=== PATIENT | female | born 1970 | race Caucasian/White ===

== ENCOUNTER → 2016-09-01 | Outpatient (CLI) | payer OTHER ==
[~2016-09-01] MED LIST: ADVA250A INH; ALBUAER3 INH; AMLO5TAB2 PO; ASCO500T35 PO; ASPI81TA81 PO; CETI-6 PO; DEXA1.5T PO; FLUT1SPR22 NASAL; FLUT50SP EACH NARE; HYDR-3583 PO; LEVO-168 PO; LISI-515 PO; MAGN200T PO; METF1000 PO; NEUR300C PO; PERI8.6T PO; PROT40TA PO; VITA-83 PO; WOMETAB2 PO; [UNRECOGNIZED DRUG - OTHER] PO
[2016-09-01 08:20] LABS: HEMATOCRIT 41.1 % (35.0-46.0); MEAN CELL VOLUME 95.4 FL (80.0-100.0); MEAN CORPUSCULAR HEMOGLOBIN 32.9 PG (27.0-34.0); MEAN CORPUSCULAR HGB CONC 34.5 % (32.0-36.0); PLATELET COUNT 308 TH/MM3 (150-450); REVIEW FLAG FINAL; WHITE BLOOD COUNT 10.3 TH/MM3 (4.0-11.0)
[2016-09-01 08:31] LABS: PROTHROMBIN TIME - PATIENT 10.8 SEC (9.8-11.6)
[2016-09-01 08:51] LABS: BICARBONATE 30.9 MEQ/L (21.0-32.0); POTASSIUM 4.6 MEQ/L (3.5-5.1)
--- NOTE | 2016-09-01 08:59 | RADRPT ---
EXAM DATE/TIME: 09/01/2016 08:47 [facility] COMPARISON: No previous studies available for comparison. INDICATIONS : Evaluate for pneumonia, pneumothorax, or communicable disease; Pre op for surgery Tuesday. MEDICAL HISTORY : Hypertension. Diabetes mellitus type II. Asthma, Renal disease. SURGICAL HISTORY : None. ENCOUNTER: Initial ACUITY: 1 day PAIN SCORE: 0/10 LOCATION: Bilateral chest FINDINGS: PA and lateral views of the chest demonstrate the lungs to be symmetrically aerated without evidence of mass, infiltrate or effusion. The cardiomediastinal contours are unremarkable. Osseous structure s are intact. CONCLUSION: No acute disease. Albert Reina MD on September 01, 2016 at 8:57 Board Certified Radiologist. This report was verified electronically.
--- NOTE | 2016-09-02 15:13 | EKG ---
Date Performed: 09/01/2016 Time Performed: 08:19:17 PTAGE: 46 years EKG: Sinus rhythm NORMAL ECG NO PREVIOUS TRACING DOCTOR: Kenn Turpin Interpretating Date/Time 09/02/2016 15:10:53
== END ==
LOC: CPRE 07:54
PROVIDERS: ATTEND Neurological Surgery
DX: Z01.810 Encounter for preprocedural cardiovascular examination (principal); Z01.811 Encounter for preprocedural respiratory examination; Z01.812 Encounter for preprocedural laboratory examination; Z01.818 Encounter for other preprocedural examination; Z79.01 Long term (current) use of anticoagulants; E78.4 Other hyperlipidemia; E11.9 Type 2 diabetes mellitus without complications; M50.00 Cervical disc disorder with myelopathy, unspecified cervical region
CPT/HCPCS: 36415; 71020; 80048; 85027; 85610; 93005

== ENCOUNTER 2016-09-07 06:27 | Inpatient (IN) | payer OTHER ==
[~2016-09-07] VITALS: Ht 165.1 cm; Wt 111.0 kg
[~2016-09-07 06:27] MED LIST changes: -ASCO500T35 PO; -DEXA1.5T PO; -FLUT50SP EACH NARE; -HYDR-3583 PO; -NEUR300C PO; -PERI8.6T PO; -PROT40TA PO; -[UNRECOGNIZED DRUG - OTHER] PO
[2016-09-07 07:05] VITALS: BP 109/65; PULSE 70; RESP 16; TEMP 98.2; O2SAT 100
[2016-09-07] MEDS ORDERED: ceFAZolin 2 GM PREMIX 50 ML ONE (07:06)
[2016-09-07] MEDS ORDERED: LACTATED RINGER'S 1000 ML INJ 1,000 ML ONE (07:06)
[2016-09-07] MEDS ORDERED: CHLORHEXIDINE GLUCONATE 2 % 1 PACK (2 CLOTHS) TOPICAL PRN (07:30)
[2016-09-07] MEDS ORDERED: LACTATED RINGER'S 1000 ML INJ 1,000 ML IV SCH (07:30)
[2016-09-07] MEDS: ceFAZolin 2 GM PREMIX 50 ML IV SCH ×2 (07:30→16:30)
[2016-09-07] MEDS ORDERED: INSULIN HUMAN REGULAR 1,000 UNITS/10 ML VIAL SQ PRN (07:30)
[2016-09-07] MEDS ORDERED: SODIUM CHLORID 0.9% 500 ML IV PRN (07:30)
[2016-09-07] MEDS ORDERED: POVIDONE IODINE 5% (ANTISEPSIS KIT) 4 APPLICATIONS EACH NARE PRN (07:30)
[2016-09-07] MEDS ORDERED: METOPROLOL TARTRATE 25 MG TAB PO PRN (07:30)
[2016-09-07] MEDS ORDERED: LACTATED RINGER'S 1000 ML IV PRN (07:30)
[2016-09-07] MEDS ORDERED: THROMBIN (TOPICAL) 5,000 UNIT VIAL ONE ×2 (07:44→21:59)
[2016-09-07] MEDS ORDERED: GENTAMICIN SULFATE 80 MG/2 ML VIAL ONE (07:45)
[2016-09-07] MEDS ORDERED: GELFOAM SIZE 100 ONE (07:45)
[2016-09-07] MEDS ORDERED: LIDOCAINE 1%/EPINEPHrine 1:100,000 SOLN 20 ML VIAL ONE (07:45)
[2016-09-07] MEDS ORDERED: ACETAMINOPHEN 1000 MG/100 ML VIAL IV ONE ×2 (07:57→15:38)
[2016-09-07] MEDS ORDERED: fentaNYL CITRATE 250 MCG/5 ML AMP ONE ×3 (07:58→23:02)
[2016-09-07] MEDS ORDERED: HYDROmorphone HCL PF 2 MG/ML VIAL ONE ×2 (07:58→15:41)
[2016-09-07] MEDS ORDERED: APREPITANT 40 MG CAP ONE (07:58)
[2016-09-07] MEDS ORDERED: MIDAZOLAM HCL 2 MG/2 ML VIAL ONE ×3 (07:58→23:02)
[2016-09-07] MEDS ORDERED: FAMOTIDINE 20 MG/2 ML VIAL ONE (07:58)
[2016-09-07] MEDS ORDERED: DEXAMETHASONE SOD PHOS 4 MG/ML VIAL ONE ×2 (07:58→15:38)
[2016-09-07] MEDS ORDERED: ceFAZolin INJ 1,000 MG VIAL IV ONE (20:30)
[2016-09-07] MEDS ORDERED: ePHEDrine/NS 25 MG/5 ML SYR IV ONE (23:00)
[2016-09-07] MEDS ORDERED: NORMOSOL R INJ 2,000 ML IV ONE (23:00)
[2016-09-07] MEDS ORDERED: PROPOFOL 200 MG/20 ML AMP IV ONE (23:00)
[2016-09-07] MEDS ORDERED: LACTATED RINGER'S 1000 ML INJ 2,000 ML IV ONE (23:00)
[2016-09-07] MEDS ORDERED: ONDANSETRON HCL 4 MG/2 ML VIAL IV PUSH ONE (23:00)
[2016-09-08] VITALS (13 sets, daily range): BP systolic 143–160; BP diastolic 70–88; PULSE 61–88; RESP 10–19; TEMP 98–98.7; O2SAT 95–100
[2016-09-08] MEDS ORDERED: *morphine SULFATE 8 MG/ML PERIprocedure ONLY ONE ×2 (00:14→00:19)
[2016-09-08] MEDS ORDERED: NALOXONE HCL 0.4 MG/ML AMP IV PRN (00:15)
[2016-09-08] MEDS ORDERED: SODIUM CHLORIDE 0.9% FLUSH 5 ML FLUSH IVF PRN (00:15)
[2016-09-08] MEDS ORDERED: MORPHINE SULFATE 4 MG/ML INJ IV PRN (00:15)
[2016-09-08] MEDS ORDERED: DO NOT ADM ANY ANTICOAGULANT DRUGS PRN (00:15)
--- NOTE | 2016-09-08 00:15 | RADRPT ---
EXAM DATE/TIME: 09/07/2016 17:55 [facility] COMPARISON: No previous studies available for comparison. INDICATIONS : C6-C7 cervical fusion. MEDICAL HISTORY : Hypertension. Diabetes mellitus type II. Asthma, Renal disease SURGICAL HISTORY : None. ENCOUNTER: Initial ACUITY: 1 day PAIN SCORE: Non-responsive. LOCATION: Bilateral neck FINDINGS: 2 lateral views of the lower cervical spine were obtained using a matrix camera and demonstrate an an terior screw-plate fixation device at the C6-7 level. There is bone grafting material and markers in interspace which are poorly visualized. An endotracheal tube and temperature probe are noted. CONCLUSION: Limited lateral exam. Ezra Mancia MD on September 08, 2016 at 0:12 Board Certified Radiologist. This report was verified electronically.
--- NOTE | 2016-09-08 01:04 | PD.OP ---
Operative Report Date of Surgery: September 07, 2016 Preoperative Diagnosis: (1) Cervical disc disease with myelopathy 1. Severe cervical degenerative disc disease, multilevel cervical disc herniations with moderate to severe history or osteophytic disc complex 2. Severe C6 7 and moderately severe C5 6 and C7-T1 canal stenosis 3. 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 Severe cervical degenerative disc disease, multilevel cervical disc herniations with moderate to severe history or osteophytic disc complex 2. Severe C6 7 and moderately severe C5 6 and C7-T1 canal stenosis 3. Cervical myelopathy 4. Ossification posterior longitudinal ligament 5. Intraoperative CSF leak secondary to ossification posterior longitudinal ligament Procedure: 1. C6 7 anterior cervical discectomy, resection of extensive chronic herniated nucleus pulposus and posterior osteophytic disc. 2. Resection C6-7 ossified posterior longitudinal ligament 3. Repair C6-7 dural defect 4. Partial and C7 corpectomy with reconstruction utilizing PEEK cage, demineralized bone matrix 5. C6-7 anterior cervical instrumentation 6. Use of intraoperative microscope high-power magnification for resection chronic posterior ossific disc complex and ossified posterior longitudinal ligament. Anesthesia: Gen. endotracheal Surgeon: Don Gamble Manufacturers Service Representative(s): Amrit Knight Operation and Findings: Indications: 46-year-old female with progressive upper extremity paresthesia. Preoperative CT scan and MRI cervical spine with extremely severe partially calcified chronic appearing herniated nucleus pulposus and posterior osteophytic disc complex with a component of calcified posterior longitudinal ligament was severe spinal cord compression. Findings: Severe chronic appearing C6-7 herniated nucleus pulposis with osteophyte formation. Localized OPLL at the central to left C6-7 level with erosion of the dura Procedure in detail: The patient was brought into the operating room and positioned in supine position on the 3080 table with the head and neck in neutral position. Colon catheter was placed. Lines were established by Anesthesia. Gen. endotracheal anesthesia was induced without difficulty, taking care not to significantly flex or extend the patient's neck during intubation and positioning. Leads for intraoperative neuro monitoring were placed and a baseline study obtained. All extremities were appropriately padded. The neck and upper chest were shaved with clippers and sterilely prepped and draped. Appropriate timeout procedure was performed with all personnel present and in agreement 1% Xylocaine with epinephrine was used for local infiltration over the incision site which was made transversely at the C6-7 level and carried sharply down through the platysma muscle. The exposure was continued medial to the sternocleidomastoid muscle and carotid artery, and lateral to the trachea and esophagus. The prevertebral fascia was elevated away from the anterior longitudinal ligament with a Kitner sponge. The longus coli muscle on each side was elevated with the Herrera elevator. The self-retaining retractor was placed with the blades beneath the longus coli muscle on each side. The appropriate levels were confirmed with intraoperative C-arm and preoperative imaging studies. The microscope was brought into place and used for the remainder of the procedure including the closure. The procedure was performed at the C6-7 level. This level was addressed first due to the severity of the stenosis. The anterior osteophyte was resected with the Leksell rongeur. The disc and annulus was incised with a 15 blade knife and discectomy performed with pituitary biopsy forceps and straight and angled curettes. There was very little desiccated disc material at the C6-7 level A large amount of chronic appearing herniated disc material was lifted away from extensive osteophyte deeper in the canal using the straight and angled and ligament dissectors and pituitary biopsy forceps. The TPS drill with the 5 mm barrel bur was used to decorticate the endplates and removed the majority of the osteophyte along the anterior spinal canal as well as the right and left uncovertebral joint. Due to the extensive nature of the large posterior osteophytic disc complexes at the C6-7 level and degree of ligament calcification, the inferior half of the C6 and superior half of the C7 vertebral bodies were removed with the TPS drill in order to adequately access the spinal canal for decompression. Once the initial layer of herniated disc material was removed, a deeper layer of dense calcification was encountered which was again removed with the TPS drill with the 5 mm barrel bur and the 4 mm miguel bur. The miguel dash was used to extensively undercut the posterior aspect of the residual C6 and C7 vertebral bodies in order to make room for the underlying calcified ligament and chronic disc herniated material to be lifted away from the spinal canal with the thickened ligament dissector and removed with the Kerrison rongeur without impinging on the anterior thecal sac. Very cautious dissection was performed under high part magnification, and a extensive area of calcified posterior longitudinal ligament was removed. The remainder of the resection of the posterior annulus and ligament as well as the posterior osteophyte and bilateral uncovertebral joint was performed with the 2 and 3 mm thin footplate Kerrison rongeurs. This large section of calcified chronic disc herniated material and calcified posterior longitudinal ligament was adherent to the thecal sac, but there was a good plane of dissection. However, once this was removed, there was a less severe but still prominent calcification of the dura and deeper aspect of the posterior longitudinal ligament which appeared to cause significant residual compression on the spinal cord. The Rhoton dissectors and the microknife were used to carefully free up the area of calcification from the surrounding dura and ligament. The dura in this region was totally calcified and absent, and careful dissection was undertaken in order to maintain a layer of arachnoid surrounding the spinal cord and nerves. Despite this, a small relatively focal defect in the arachnoid was encountered. There was focal CSF leakage from this region. There was no protrusion of any nerve roots or other neural material through the defect. A thin layer of deep or calcified ligament extending below the residual C6 and C7 vertebral body was again lifted away from the anterior thecal sac with the thickened ligament dissector and resected with the thin footplate Kerrison rongeurs and the micro-biopsy forceps. Bleeding was carefully controlled with temporary application of Gelfoam thrombin and the bipolar forceps. The dural defect was covered with a piece of properly prepared bovine pericardium to create a barrier between the arachnoid and dural defect and the bone graft. The appropriate size PEEK spacer filled with demineralized bone matrix was then placed at the C6-7 level with a good fit of the graft. The blunt nerve hook was used to probe beneath the bone graft to ensure that there was no impingement on the thecal sac or exiting nerve roots. Additional Gelfoam and thrombin was placed alongside the spacer to further prevent CSF leakage. The appropriate size Precision anterior cervical plate was then chosen and the bone screws were placed with the 14 mm fixed screws at the caudal most level and the 14 mm variable screws at the cephalad level of the decompression. The screws were firmly secured and the locking cams engaged. The screws were placed under direct intraoperative C-arm imaging. Imaging was difficult due to the size of the patient's shoulders. Multiple images were taken during placement of the screws, and the C6 screws appear to be in good position. However a final postoperative x-ray with further retraction of the patient's arms and shoulders revealed the C6 screws to be somewhat low and the vertebral body, but not impinging on the graft. Excellent purchase of the screws was obtained during the procedure. Due to the CSF leak as well as the degree of calcification of the dura encountered, as well as some intermittent changes in intraoperative neural monitoring during the procedure, it was elected to limit the anterior procedure to the C6-7 level with plans for a postoperative MRI and possible further posterior rather than anterior decompression as a staged procedure. There was no significant bleeding at the time of the closure. The closure was performed with 3-0 Vicryl running for the platysma and interrupted for the subcutaneous closure, with 4-0 Vicryl running for the subcuticular closure. A dressing of sterile Mastisol, Steri-Strips, and Primapore dressing was placed. The patient was placed into a cervical collar, and taken to recovery room in stable condition. All counts were correct at the end of the case. Estimated blood loss was 450 cc No specimen was sent to pathology. Intraoperative neuro monitoring revealed some intermittent changes in the sensory and motor evoked potentials, which had mostly corrected by the end of the procedure. Don Gamble MD September 08, 2016 01:04
[2016-09-08] MEDS: D5-1/2 NS + KCL 20 MEQ INJ 1,000 ML IV SCH ×3 (01:35→20:29)
[2016-09-08] MEDS: HYDROmorphone HCL PF 1 MG/ML VIAL IV PRN ×3 (02:59→20:39)
[2016-09-08 04:22] LABS: BASOPHIL % 0.1 % (0.0-2.0); HEMATOCRIT 38.2 % (35.0-46.0); HEMO FLAGS DIFF FINAL; LYMPHOCYTE # 0.7 TH/MM3 (1.0-4.8); MEAN CELL VOLUME 95.3 FL (80.0-100.0); MEAN CORPUSCULAR HEMOGLOBIN 31.5 PG (27.0-34.0); MEAN CORPUSCULAR HGB CONC 33.1 % (32.0-36.0); MONO % 2.3 % (0.0-8.0); NEUT % 91.6 % (16.0-70.0); PLATELET COUNT 228 TH/MM3 (150-450); WHITE BLOOD COUNT 11.9 TH/MM3 (4.0-11.0)
[2016-09-08 05:00] LABS: BICARBONATE 26.3 MEQ/L (21.0-32.0)
[2016-09-08 05:02] LABS: POTASSIUM 4.5 MEQ/L (3.5-5.1)
[2016-09-08] MEDS: SODIUM CHLORIDE 0.9% FLUSH 5 ML FLUSH IVF SCH ×2 (08:44→20:27)
[2016-09-08] MEDS: PANTOPRAZOLE SOD 40 MG DELAYED RELEASE TAB PO SCH (08:44)
[2016-09-08] MEDS: DOCUSATE SODIUM 100 MG CAP PO SCH ×2 (08:44→20:29)
[2016-09-08] MEDS: ACETAMINOPHEN/HYDROcodone 325 MG/5 MG TAB PO PRN (08:47)
--- NOTE | 2016-09-08 09:32 | HHI.NSPN ---
(Hilario Chase) Note Status Status: Progress Note (Hilario Chase) Interval History Interval History 09/07: Indications: 46-year-old female with progressive upper extremity paresthesia. Preoperative CT scan and MRI cervical spine with extremely severe partially calcified chronic appearing herniated nucleus pulposus and posterior osteophytic disc complex with a component of calcified posterior longitudinal ligament was severe spinal cord compression. Findings: Severe chronic appearing C6-7 herniated nucleus pulposis with osteophyte formation. Localized OPLL at the central to left C6-7 level with erosion of the dura 09/08: Patient was awake & alert when seen this morning. She does have a headache and dizziness. She complains of pain to the left elbow and left shoulder which is her major complaint. The left elbow is a sharp pain. PT did evaluate the patient this morning. Nursing reports that the patient had a blood glucose of 183 this morning and that the patient is diabetic. She normally takes metformin at home. (Hilario Chase) Labs, Micro, & Vital Signs Results Allergies Coded Allergies Type Severity Reaction Last Updated Verified Silvadene Allergy Severe Rash 09/07/16 Yes Recent Impressions Cervical Spine X-Ray 09/07/16 0000 Signed Impressions: Service Date/Time: Wednesday, September 07, 2016 17:55 - CONCLUSION: Limited lateral exam. Ezra Mancia MD /// 06:00 18:00 06:00 18:00 06:00 18:00 Intake Total 728 ml Output Total 700 ml Balance 28 ml Intake Oral 60 ml IV Total 668 ml Output Urine Total 700 ml Laboratory Tests Test 09/08/16 03:53 White Blood Count 11.9 TH/MM3 Red Blood Count 4.00 MIL/MM3 Hemoglobin 12.6 GM/DL Hematocrit 38.2 % Mean Corpuscular Volume 95.3 FL Mean Corpuscular Hemoglobin 31.5 PG Mean Corpuscular Hemoglobin 33.1 % Concent Red Cell Distribution Width 13.0 % Platelet Count 228 TH/MM3 Mean Platelet Volume 7.5 FL Neutrophils (%) (Auto) 91.6 % Lymphocytes (%) (Auto) 6.0 % Monocytes (%) (Auto) 2.3 % Eosinophils (%) (Auto) 0.0 % Basophils (%) (Auto) 0.1 % Neutrophils # (Auto) 11.0 TH/MM3 Lymphocytes # (Auto) 0.7 TH/MM3 Monocytes # (Auto) 0.3 TH/MM3 Eosinophils # (Auto) 0.0 TH/MM3 Basophils # (Auto) 0.0 TH/MM3 CBC Comment DIFF FINAL Differential Comment Sodium Level 139 MEQ/L Potassium Level 4.5 MEQ/L Chloride Level 106 MEQ/L Carbon Dioxide Level 26.3 MEQ/L Anion Gap 7 MEQ/L Blood Urea Nitrogen 9 MG/DL Creatinine 0.81 MG/DL Estimat Glomerular Filtration 76 ML/MIN Rate Random Glucose 183 MG/DL Calcium Level 8.1 MG/DL Constitutional Vital Signs Date Time Temp Pulse Resp B/P Pulse Ox O2 Delivery O2 Flow Rate FiO2 09/08/16 08:00 72 09/08/16 07:00 97 Nasal Cannula 2.00 09/08/16 06:00 70 09/08/16 04:00 98.7 80 19 156/72 97 09/08/16 04:00 80 09/08/16 02:00 79 09/08/16 01:45 98.7 88 19 150/88 95 09/08/16 01:34 95 Nasal Cannula 2.00 09/08/16 01:00 94 16 136/79 97 Nasal Cannula 2 09/08/16 00:45 98 16 156/82 98 Nasal Cannula 2 09/08/16 00:30 98 16 161/83 98 Nasal Cannula 2 09/08/16 00:15 100 16 156/83 97 Nasal Cannula 2 09/08/16 00:00 102 16 158/84 98 Nasal Cannula 2 09/07/16 23:45 100.7 112 16 163/86 98 Nasal Cannula 2 09/08/16 07:00 Intake Total 728 ml Output Total 700 ml Balance 28 ml (Hilario Chase) Review of Systems/Exam ROS Constitutional: Patient denies any fever or chills. HEENT: Patient does have soreness to the throat. She denies any hoarseness or difficulty swallowing. Neck: She denies any pain to the midline neck. Respiratory: She does have a cough. She denies any shortness of breath. Cardiovascular: She denies any chest pain, palpitations or irregular heart beat. Gastrointestinal: She denies any abdominal pain, nausea, vomiting or bowel incontinence. Extremities: Complains of pain to the left elbow and left shoulder. She feels weak to the extremities. Neurological: She has a headache and dizziness. She also has numbness to the left forearm and hand that is worse. She has numbness to the right forearm and the fourth and fifth fingers. The numbness to the legs and feet are the same. Exam General: Awake, alert, NAD. HEENT: Normocephalic, atraumatic. Neck: Torres Martinez J cervical collar in place. No midline tenderness to palpation. Left anterior neck with intact surgical dressing w/o any shadowing noted, mildly TTP. Respiratory: CTAB w/o W/R/R, equal excursion, non-laboured, on RA. Cardiovascular: S1S2 w/RRR w/o M/G/R, radial pulses 2+ bilaterally. Monitor is sinus rhythm w/o any ectopy noted. Gastrointestinal: Abdomen soft, nontender, positive bowel sounds. Genitourinary: Colon catheter to BSD w/clear yellow urine. Extremities: EVANS, no evident deformity, discolouration or clubbing noted. TTP over left scapula. TTP of left elbow. Neurological: AAOx3 Speech clear & appropriate although slow Follows simple commands Decrease sensation to all extremities, RUE, left arm and BLE w/o change from before surgery, left forearm & hand worse than before surgery. Motor strength: RUE & RLE 5/5, left bicep 5/5, left tricep & deltoid 4/5, left hand intrinsics & extensors 2/5, left hip flexion 4/5, left knee extension 4+/5 , left knee flexion 4/5, left plantar flexion & extension 4/5 (Hilario Chase) Medications Current Medications Current Medications Medications (Trade) Dose Ordered Sig/Lu Route Start Time Stop Time Status Last Admin Lactated Ringer's 1,000 ml @ 30 mls/hr Q24H PRN IV 09/07/16 07:30 09/10/16 07:29 (NS 500 ml Inj) 500 ml @ 30 mls/hr [id number] PRN IV 09/07/16 07:30 09/10/16 07:29 Miscellaneous Information ALL NURSING DEPARTME... UNSCH PRN .XX 09/08/16 00:15 09/09/16 00:14 (Diboll 5-325 Mg) 1 tab Q4H PRN PO 09/08/16 00:15 09/08/16 08:47 (Diboll 10-325 Mg) 1 tab Q4H PRN PO 09/08/16 00:15 (Dilaudid Pf Inj) 0.5 mg Q3H PRN IV 09/08/16 00:15 09/08/16 02:59 (Morphine Inj) 4 mg Q3H PRN IV 09/08/16 00:15 (Narcan Inj) 0.4 mg UNSCH PRN IV 09/08/16 00:15 (Colace) 100 mg BID PO 09/08/16 09:00 09/08/16 08:44 (Protonix) 40 mg DAILY PO 09/08/16 09:00 09/08/16 08:44 (Zofran Inj) 4 mg Q6H PRN IV 09/08/16 00:15 (NS Flush) 2 ml UNSCH PRN IVF 09/08/16 00:15 IV Flush 2 ml 2 ml BID IVF 09/08/16 09:00 09/08/16 08:44 (D5-1/2 NS + KCl 20 Meq Inj) 1,000 ml @ 100 mls/hr Q10H IV 09/08/16 00:13 (Hilario Chase) Medical Decision Making MDM Remarks (1) Cervical disc disease with myelopathy (2) 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 Severe cervical degenerative disc disease, multilevel cervical disc herniations with moderate to severe history or osteophytic disc complex 2. Severe C6 7 and moderately severe C5 6 and C7-T1 canal stenosis 3. Cervical myelopathy 4. Ossification posterior longitudinal ligament 5. Intraoperative CSF leak secondary to ossification posterior longitudinal ligament POD # 1 () s/p: 1. C6 7 anterior cervical discectomy, resection of extensive chronic herniated nucleus pulposus and posterior osteophytic disc. 2. Resection C6-7 ossified posterior longitudinal ligament 3. Repair C6-7 dural defect 4. Partial and C7 corpectomy with reconstruction utilizing PEEK cage, demineralized bone matrix 5. C6-7 anterior cervical instrumentation 6. Use of intraoperative microscope high-power magnification for resection chronic posterior ossific disc complex and ossified posterior longitudinal ligament. (Hilario Chase) Plan Plan Remarks Continue neuro checks PT eval & tx MRI cervical spine today Will order Novolog sliding scale insulin low intensity Will order blood glucose monitoring before meals Will order OT eval & tx Will consider transferring to a regular med/surg floor if MRI is okay (Hilario Chase) Attending Statement I have personally seen and examined the patient on the date of this note. Pertinent documentation and study results have been reviewed by the undersigned. I have personally developed the treatment plan and performed medical decision making. Agree with findings, exam, and treatment plan as noted above. Postoperative MRI reviewed with radiology. Significant edema at the C6-C7 level is somewhat anticipated based on the degree of severe spinal cord compression with rebound post-decompression edema. No evidence of hematoma within the cord. Examination reveals moderate sensory loss in this left C8 distribution with mostly 2/5 left hand intrinsics and abductor digiti quinti minimi, otherwise normal strength in the upper and lower extremities Patient complains of headache postoperatively. MRI reveals what appears to be a fluid collection tracking along the prevertebral space in the lower cervical upper thoracic region. Probable postoperative CSF leak. Treatment options discussed with patient. We will initially requested a lumbar subarachnoid drain to be placed and monitor for persistent CSF leak. May need revision of the operative site of CSF leak persist. I discussed plans for a stage posterior decompression with the patient. All questions answered PT, ST, OT notes reviewed (Don Gamble MD) Hilario Chase September 08, 2016 09:32 Don Gamble MD September 08, 2016 20:53
[2016-09-08] MEDS ORDERED: GLUCAGON 1 MG/ML VIAL OTHER PRN (10:15)
[2016-09-08] MEDS ORDERED: DEXTROSE 50% IN WATER 50 ML VIAL(D50) IV PRN (10:15)
[2016-09-08] MEDS: INSULIN ASPART SUPPLEMENTAL SCALE SQ SCH ×3 (11:22→20:30)
[2016-09-08] MEDS: ACETAMINOPHEN/HYDROcodone 325 MG/10 MG TAB PO PRN (15:38)
[2016-09-08] MEDS: ONDANSETRON HCL 4 MG/2 ML VIAL IV PRN (17:03)
--- NOTE | 2016-09-08 17:06 | RADRPT ---
EXAM DATE/TIME: 09/08/2016 11:31 [facility] COMPARISON: No previous studies available for comparison. Ellen Palomo, MRI C Spine, August 03, 2016 INDICATIONS : Left arm and hand weakness with left elbow pain post surgery. MEDICAL HISTORY : Hypertension. Diabetes mellitus type 2. Hypothyroidism. SURGICAL HISTORY : Cholecystectomy. Tubal ligation. C6-C7 discectomy 09/07 ENCOUNTER: Subsequent ACUITY: 1 day PAIN SCORE: 3/10 LOCATION: Left elbow TECHNIQUE: Multiplanar, multisequence MRI examination of the cervical spine was performed. FINDINGS: Sagittal images demonstrate normal vertebral body alignment and curvature. No focal areas of marrow r eplacement are identified. The craniocervical junction appears normal. The cord demonstrates abnormal signal intensity characteristic of edema at C6-C7 centrally. There is at least moderate stenosis at this level. There is fluid ventral to the thecal sac at C6-C7 measuring 8 mm in anterior posterior di mension which may reflect a CSF leak. Axial images were performed from C2-3 through C7-T1. C2-C3: No significant abnormalities identified. C3-C4: A central protrusion is present impinging on the thecal sac and touching the ventral aspect of the co rd and mildly deforming it. The neural foramina are clear bilaterally. C4-C5: A central to right sided disc protrusion is present impinging on the thecal sac. This flattens the co rd on its right lateral aspect. The neural foramina are clear bilaterally. C5-C6: A central to right sided disc protrusion is present impinging on the thecal sac and touching the vent ral aspect of the cord. There is moderate neural foraminal narrowing on the right. There is mild to m oderate spinal canal stenosis. This flattens the right lateral aspect of the cord. C6-C7: The graft is in good position. Cord edema is present with moderate to marked stenosis. The neural for divya are clear bilaterally. There is a ventral fluid collection which may reflect a CSF leak. C7-T1: There is broad-based annular bulge of disc. There is mild spinal canal stenosis. The neural foramina are clear bilaterally. CONCLUSION: 1. Postsurgical changes as above. 2. Moderate to marked stenosis at C6-C7 with prominent cord edema centrally 3. Disc protrusions at C3-C4 C4-C5 and C5-C6 central and asymmetric the right with mild to moderate s tenosis Martinez Shaw MD on September 08, 2016 at 16:48 Board Certified Radiologist. This report was verified electronically.
[2016-09-08] MEDS ORDERED: SODIUM CHLOR 0.45% 1000 ML INJ 1,000 ML IV SCH (20:53)
[2016-09-08] MEDS ORDERED: ALBUTEROL SULFATE 90 MCG/ACT HFA 8 GM INHALER INH PRN (21:00)
[2016-09-08] MEDS ORDERED: NON-FORMULARY DRUG (Fluticasone-Salmeterol Inh (Advair Diskus Inh) 1 PUFF) INH SCH (21:00)
[2016-09-08] MEDS ORDERED: ALBUTEROL SULFATE 90 MCG/ACT HFA 18 GM INHALER INH PRN (21:45)
[2016-09-09] VITALS (14 sets, daily range): BP systolic 118–146; BP diastolic 67–81; PULSE 72–83; RESP 12–16; TEMP 97.8–98.8; O2SAT 97–100
[2016-09-09] MEDS: HYDROmorphone HCL PF 1 MG/ML VIAL IV PRN ×5 (00:19→21:55)
[2016-09-09 05:14] LABS: APTT (PATIENT) 22.5 SEC (24.3-30.1); PROTHROMBIN TIME - PATIENT 10.7 SEC (9.8-11.6)
[2016-09-09] MEDS: LEVOTHYROXINE SODIUM 112 MCG TAB PO SCH (06:18)
[2016-09-09] MEDS: D5-1/2 NS + KCL 20 MEQ INJ 1,000 ML IV SCH ×2 (06:19→16:13)
[2016-09-09] MEDS: INSULIN ASPART SUPPLEMENTAL SCALE SQ SCH ×4 (06:34→20:38)
[2016-09-09] MEDS: ASCORBIC ACID 500 MG TAB PO SCH (08:25)
[2016-09-09] MEDS: amLODIPine BESYLATE 5 MG TAB PO SCH (08:25)
[2016-09-09] MEDS: CETIRIZINE HCL 10 MG TAB PO SCH (08:25)
[2016-09-09] MEDS: MULTIVITAMINS/MINERALS THERAPEUTIC TAB PO SCH (08:25)
[2016-09-09] MEDS: PANTOPRAZOLE SOD 40 MG DELAYED RELEASE TAB PO SCH (08:25)
[2016-09-09] MEDS: DOCUSATE SODIUM 100 MG CAP PO SCH ×2 (08:25→20:41)
[2016-09-09] MEDS: LISINOPRIL 20 MG TAB PO SCH (08:25)
[2016-09-09] MEDS: BUDESONIDE-FORMOTEROL 160/4.5 MCG INHALER INH SCH ×2 (08:25→20:41)
[2016-09-09] MEDS: SODIUM CHLORIDE 0.9% FLUSH 5 ML FLUSH IVF SCH ×2 (08:41→20:39)
[2016-09-09] MEDS: metFORMIN HCL 500 MG TAB PO SCH ×2 (08:41→16:21)
[2016-09-09] MEDS ORDERED: MAGNESIUM 200 MG PO SCH (09:00)
[2016-09-09] MEDS ORDERED: [UNRECOGNIZED DRUG - REMARK] PO SCH (09:00)
[2016-09-09] MEDS ORDERED: MULTIPLE VITAMINS PO SCH (09:00)
[2016-09-09] MEDS ORDERED: [UNRECOGNIZED DRUG - OTHER] PO SCH (09:00)
[2016-09-09] MEDS ORDERED: [UNRECOGNIZED DRUG - OTHER] PO SCH (09:00)
[2016-09-09] MEDS ORDERED: MINERALS PO SCH (09:00)
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
[2016-09-09] MEDS ORDERED: MIDAZOLAM HCL 5 MG/5 ML VIAL ONE (10:15)
[2016-09-09] MEDS ORDERED: fentaNYL CITRATE 250 MCG/5 ML AMP ONE (10:15)
[2016-09-09 10:18] LABS: ALT (GPT) 17 U/L (10-53); ANION GAP 9 MEQ/L (5-15); AST (GOT) 16 U/L (15-37); BICARBONATE 25.7 MEQ/L (21.0-32.0); BLOOD UREA NITROGEN 7 MG/DL (7-18); CHLORIDE 103 MEQ/L (98-107); GLOMERULAR FILTRATION RATE 90 ML/MIN (>89); POTASSIUM 3.9 MEQ/L (3.5-5.1); SODIUM (NA) 138 MEQ/L (136-145)
[2016-09-09 10:20] LABS: ALKALINE PHOSPHATASE 57 U/L (45-117); TOTAL BILIRUBIN ADULT 0.5 MG/DL (0.2-1.0)
--- NOTE | 2016-09-09 10:52 | PD.RAD ---
Post Procedure Progress Note Pre Procedure Diagnosis: (1) CSF leak Post Procedure Diagnosis: (1) CSF leak Procedure Date: September 09, 2016 Supervising Radiologist: Baron Hall JR Proceduralist/Assist: Maia Mcqueen, RT(R), Juan Holcomb RT(R) Anesthesia: Conscious Sedation Plan of Activity Patient to Unit: ROPU Patient Condition: Good See PACS Report for procedural detail/treatment Spinal Procedure Lumbar Drain L3-L4 Fluid Description: Clear Puncture Time: 10:32 Findings: clear csf. Jr. Rafael,Baron Marcus MD September 09, 2016 10:52
[2016-09-09] MEDS ORDERED: SODIUM PHOSPHATE INJ 21 MMOL in SODIUM CHLORIDE 0.9% INJ 150 ML IV ONE (11:45)
--- NOTE | 2016-09-09 11:50 | RADRPT ---
EXAM DATE/TIME: 09/09/2016 10:30 [facility] COMPARISON: No previous studies available for comparison. INDICATIONS : Patient presents with cerebral spinal fluid leak in need of lumbar drain to monitor site. MEDICAL HISTORY : CDD Diabetes Asthma Bronchitis Renal disease SURGIAL HISTORY : Lasix sx Gallbladder 1993 Tubal 09/08 C6-C7 ant. disc ENCOUNTER: Initial ACUITY: 2 days PAIN SCORE: 5/10 LOCATION: Left Arm and headache LUMBAR PUNCTURE TIME: 10:32 hours FLUORO TIME: 2.4 minutes IMAGE SERIES: 1 LEVEL: Tip of lumbar drain was placed at T7 DEVICE(S): 1.) 5 Lithuanian lumbar drain catheter PROCEDURE : 1. Fluoroscopically guided lumbar drain placement. 2. Conscious sedation with continuous EKG and oximetry monitoring. The risks, benefits and alternatives to the procedure were explained and verbal and written consent w as obtained. The site was prepped in sterile fashion. Full sterile technique was used, including ca p, mask, sterile gloves and gown and a large sterile sheet. Hand hygiene and 2% chlorhexidine and/or betadine/alcohol prep was utilized per protocol for cutaneous antisepsis. The skin and subcutaneous tissues were infiltrated with local anesthetic solution. With fluoroscopic guidance the lumbar thecal sac was punctured with a 14 gauge Touhy needle and a lum bar drain was placed with its tip at the level as described above and the catheter was sutured in megan ce. CSF was identified returning from the catheter at the termination of the procedure. Conscious sedation was performed with the prescribed dosages and duration as above in the presence of an independent trained radiology nurse to assist in the monitoring of the patient. EKG and oximetry remained stable throughout the procedure. The patient tolerated the procedure well and there were n o complications. The patient was sent to post anesthesia recovery in stable condition. CONCLUSION: Uncomplicated lumbar drain placement as above. Clear CSF noted. Baron Hall Jr., MD on September 09, 2016 at 11:48 Board Certified Radiologist. This report was verified electronically.
[2016-09-09] MEDS: ceFAZolin 2 GM PREMIX 50 ML IV SCH (12:08)
--- NOTE | 2016-09-09 12:37 | RADRPT ---
EXAM DATE/TIME: 09/09/2016 11:20 [facility] COMPARISON: MRI CERVICAL SPINE W/O CONTRAST, September 08, 2016, 11:31. INDICATIONS : Neck pain RADIATION DOSE: 29.32 CTDIvol (mGy) MEDICAL HISTORY : Non-responsive. SURGICAL HISTORY : cervical repair ENCOUNTER: Initial ACUITY: 1 day PAIN SCALE: Non-responsive LOCATION: neck TECHNIQUE: Volumetric scanning of the cervical spine was performed. Multiplanar reconstructions in the sagittal, coronal and oblique axial planes were performed. Using automated exposure control and adjustment o f the mA and/or kV according to patient size, radiation dose was kept as low as reasonably achievable to obtain optimal diagnostic quality images. FINDINGS: Sagittal images demonstrate normal vertebral body alignment and curvature. The odontoid is intact. Th e occipital condyles and lateral masses of C1 are intact. Axial images were performed from C2-C3 to C7-T1. There is anterior cervical fusion with a plate anteriorly from C6-C7. Nuclear C2-C3: No significant abnormalities identified. C3-C4: There is prominent central osteophyte impinging on the thecal sac causing mild stenosis. C4-C5: There is osteophytic ridging asymmetric to the right. This compromises the exiting right-sided nerve root exit zone. The neural foramina are clear bilaterally. C5-C6: A central to right sided disc protrusion is present impinging on the thecal sac. There is mild to mod erate spinal canal stenosis. The neural foramina are clear bilaterally. C6-C7: Postsurgical changes as above. There is moderate spinal canal stenosis. There is mild right sided ted ral foraminal narrowing. C7-T1: There is central osteophytic spur causing mild stenosis. CONCLUSION: 1. Postsurgical changes as above. moderate spinal stenosis at C6-C7. 2. Multilevel osteophytes compressing the thecal sac and causing mild to moderate stenosis Martinez Shaw MD on September 09, 2016 at 12:29 Board Certified Radiologist. This report was verified electronically.
[2016-09-09] MEDS: GABAPENTIN 300 MG CAP PO SCH (20:41)
[2016-09-09] MEDS ORDERED: MAGNESIUM OXIDE 400 MG TAB PO PRN (21:15)
[2016-09-09] MEDS ORDERED: SODIUM PHOSPHATE INJ 30 MMOL in SODIUM CHLOR 0.9% 250 ML INJ 240 ML IV PRN (21:15)
[2016-09-09] MEDS ORDERED: POTASSIUM CHLOR 20 MEQ PREMIX 100 ML IV PRN ×2 (21:15)
[2016-09-09] MEDS ORDERED: POTASSIUM CHLORIDE 25 MEQ EFFERVESCENT TAB PO PRN (21:15)
[2016-09-09] MEDS ORDERED: MAGNESIUM SULFATE INJ 4 GM in SODIUM CHLORIDE 0.9% INJ 92 ML IV PRN (21:15)
[2016-09-09] MEDS ORDERED: POTASSIUM CHLOR 40 MEQ PREMIX 100 ML IV PRN ×2 (21:15)
[2016-09-09] MEDS ORDERED: POTASSIUM PHOSPHATE MONOBASIC 500 MG TAB PO PRN (21:15)
[2016-09-09] MEDS ORDERED: MAGNESIUM SULFATE INJ 2 GM in SODIUM CHLORIDE 0.9% INJ 96 ML IV PRN (21:15)
[2016-09-10] VITALS (11 sets, daily range): BP systolic 114–145; BP diastolic 55–69; PULSE 72–85; RESP 11–17; TEMP 98.2–98.7; O2SAT 96–99
[2016-09-10 00:52] LABS: ALT (GPT) 16 U/L (10-53); ANION GAP 6 MEQ/L (5-15); AST (GOT) 13 U/L (15-37); BICARBONATE 28.5 MEQ/L (21.0-32.0); BLOOD UREA NITROGEN 7 MG/DL (7-18); CHLORIDE 106 MEQ/L (98-107); GLOMERULAR FILTRATION RATE 88 ML/MIN (>89); POTASSIUM 3.7 MEQ/L (3.5-5.1); SODIUM (NA) 140 MEQ/L (136-145)
[2016-09-10 00:55] LABS: ALKALINE PHOSPHATASE 57 U/L (45-117); TOTAL BILIRUBIN ADULT 0.4 MG/DL (0.2-1.0)
[2016-09-10] MEDS: HYDROmorphone HCL PF 1 MG/ML VIAL IV PRN ×2 (02:59→22:20)
[2016-09-10] MEDS: LEVOTHYROXINE SODIUM 112 MCG TAB PO SCH (06:00)
[2016-09-10] MEDS: INSULIN ASPART SUPPLEMENTAL SCALE SQ SCH ×4 (07:00→21:00)
[2016-09-10] MEDS ORDERED: GENTAMICIN SULFATE 80 MG/2 ML VIAL ONE (07:27)
[2016-09-10] MEDS ORDERED: LIDOCAINE 1%/EPINEPHrine 1:100,000 SOLN 20 ML VIAL ONE (07:27)
[2016-09-10] MEDS ORDERED: GELFOAM SIZE 100 ONE (07:27)
[2016-09-10] MEDS ORDERED: THROMBIN (TOPICAL) 5,000 UNIT VIAL ONE (07:27)
[2016-09-10] MEDS: BUDESONIDE-FORMOTEROL 160/4.5 MCG INHALER INH SCH ×2 (08:12→21:00)
[2016-09-10] MEDS: amLODIPine BESYLATE 5 MG TAB PO SCH (08:13)
[2016-09-10] MEDS: GABAPENTIN 300 MG CAP PO SCH ×2 (08:13→21:25)
[2016-09-10] MEDS: CETIRIZINE HCL 10 MG TAB PO SCH ×2 (08:13→18:57)
[2016-09-10] MEDS: SODIUM CHLORIDE 0.9% FLUSH 5 ML FLUSH IVF SCH (08:13)
[2016-09-10] MEDS: DOCUSATE SODIUM 100 MG CAP PO SCH ×2 (08:13→21:00)
[2016-09-10] MEDS: LISINOPRIL 20 MG TAB PO SCH (08:13)
[2016-09-10] MEDS: PANTOPRAZOLE SOD 40 MG DELAYED RELEASE TAB PO SCH (08:13)
[2016-09-10] MEDS: ASCORBIC ACID 500 MG TAB PO SCH (08:13)
[2016-09-10] MEDS: MULTIVITAMINS/MINERALS THERAPEUTIC TAB PO SCH (08:13)
[2016-09-10] MEDS: metFORMIN HCL 500 MG TAB PO SCH ×2 (08:13→18:00)
[2016-09-10] MEDS ORDERED: FAMOTIDINE 20 MG/2 ML VIAL ONE (08:19)
[2016-09-10] MEDS ORDERED: MIDAZOLAM HCL 2 MG/2 ML VIAL ONE (08:19)
[2016-09-10] MEDS ORDERED: ACETAMINOPHEN 1000 MG/100 ML VIAL IV ONE ×2 (08:25→13:09)
[2016-09-10] MEDS ORDERED: HYDROmorphone HCL PF 2 MG/ML VIAL ONE ×2 (08:26→13:08)
[2016-09-10] MEDS ORDERED: fentaNYL CITRATE 250 MCG/5 ML AMP ONE ×4 (08:26→14:52)
[2016-09-10] MEDS: ceFAZolin 2 GM PREMIX 50 ML IV SCH (09:10)
[2016-09-10] MEDS ORDERED: PROPOFOL 200 MG/20 ML AMP IV ONE (12:00)
[2016-09-10] MEDS ORDERED: NORMOSOL R INJ 2,000 ML IV ONE (12:00)
[2016-09-10] MEDS ORDERED: LACTATED RINGER'S 1000 ML INJ 1,000 ML IV ONE (12:00)
[2016-09-10] MEDS ORDERED: ONDANSETRON HCL 4 MG/2 ML VIAL IV PUSH ONE (12:00)
[2016-09-10] MEDS ORDERED: DO NOT ADM ANY ANTICOAGULANT DRUGS PRN (14:31)
[2016-09-10] MEDS ORDERED: *LABETALOL HCL 100 MG/20 ML VIAL PERIprocedural Use ONLY ONE (14:39)
[2016-09-10] MEDS ORDERED: SODIUM CHLORIDE 0.9% FLUSH 10 ML FLUSH IV FLUSH PRN (15:15)
--- NOTE | 2016-09-10 15:26 | RADRPT ---
EXAM DATE/TIME: 09/10/2016 09:10 [facility] COMPARISON: SPINE CERVICAL LATERAL ONLY, September 07, 2016, 17:55. INDICATIONS : C6-7 corpectomy with hardware placement. MEDICAL HISTORY : Hypertension. Diabetes mellitus type II. Asthma. SURGICAL HISTORY : Previous ACDF of C6-7. ENCOUNTER: Subsequent ACUITY: 3 days PAIN SCORE: Non-responsive. LOCATION: Cervical spine. FINDINGS: The vertebral bodies are normal in alignment on the lateral view. There is anterior cervical fusion w ith a plate anteriorly from C6-C7. CONCLUSION: 1. Postsurgical changes as above. Martinez Shaw MD on September 10, 2016 at 15:24 Board Certified Radiologist. This report was verified electronically.
[2016-09-10] MEDS: 1/2 NS + KCL 20 MEQ INJ 1,000 ML IV SCH (16:06)
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
[2016-09-10] MEDS: ACETAMINOPHEN/HYDROcodone 325 MG/10 MG TAB PO PRN (18:56)
[2016-09-10] MEDS: ONDANSETRON HCL 4 MG/2 ML VIAL IV PRN (19:02)
[2016-09-10] MEDS: SODIUM CHLORIDE 0.9% FLUSH 10 ML FLUSH IV FLUSH SCH (21:25)
[2016-09-11] VITALS (14 sets, daily range): BP systolic 124–145; BP diastolic 65–79; PULSE 64–84; RESP 11–23; TEMP 98–98.7; O2SAT 94–98
--- NOTE | 2016-09-11 00:39 | PD.OP ---
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 Severe cervical stenosis with myelopathy 2. 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 Severe cervical stenosis with myelopathy 2. Findings suggestive of Left C8 radiculopathy following initial C6-C7 level anterior decompression-partial corpectomy with reconstruction Procedure: 1. Revision C6 partial corpectomy, resection of additional ossified posterior longitudinal ligament and posterior osteophyte for further spinal cord and nerve decompression. 2. Removal and replacement C6-7 anterior cervical instrumentation 3. Revision of closure of C6-7 level dural defect Anesthesia: Gen. Surgeon: Don Gamble Sheet Metal Lay Out Worker(s): Ezra Solares Operation and Findings: Indications: 46-year-old female with extremely severe multilevel cervical stenosis, status post initial C6-7 partial corpectomy, resection large posterior ossific disc complex and ossified posterior longitudinal ligament with dural erosion and defect. Persistent CSF leakage noted on postoperative MRI as well as significant residual stenosis. Patient with left C8 distribution radicular symptoms and findings postoperatively, with postoperative CT scan revealing a small focal area of residual osteophyte at the left spinal canal potentially impinging on C8 nerve fibers. Procedure in detail: The patient was brought into the operating room and positioned in supine position on the 3080 table with the head and neck in neutral position. Colon catheter was placed. Lines were established by Anesthesia. Gen. endotracheal anesthesia was induced without difficulty, taking care not to significantly flex or extend the patient's neck during intubation and positioning. Leads for intraoperative neuro monitoring were placed and a baseline study obtained. All extremities were appropriately padded. The neck and upper chest were shaved with clippers and sterilely prepped and draped. Appropriate timeout procedure was performed with all personnel present and in agreement The previous sutures at the left anterior neck incision were removed. The trachea and esophagus were retracted medially, revealing the previously placed C6-7 level anterior cervical plate. The prevertebral fascia was elevated away from the anterior longitudinal ligament with a Kitner sponge. The longus coli muscle on each side was elevated with the Herrera elevator. The self-retaining retractor was placed with the blades beneath the longus coli muscle on each side. The microscope was brought into place and used for the remainder of the procedure including the closure. The previous anterior cervical plate was removed. The 14 mm distraction pins were used as needed for gentle distraction during the procedure. The previous graft at the C6-7 partial corpectomy site was removed. The previously placed bovine pericardial patch was inspected. There was a very small but persistent leakage of CSF from around the patch site. The patch was cut to a smaller size and left in place over the dural defect for initial protection during the further decompression portion of the procedure. The TPS drill with the 5 mm oval bur and the 4 mm miguel bur were used to cautiously remove residual shelf of bone on the left side at the C7 level overlying the anterior lateral canal. This area was just below the area of the dural defect encountered upon resection of the ossified posterior longitudinal ligament at the prior procedure, and was left in place at that procedure to avoid further extension of the dural defect and spinal fluid leakage. Initial inspection of this region did not appear to reveal significant residual spinal canal compression. However probing cautiously with the rotund dissectors revealed a small area of residual osteophyte protruding into the canal. Once the overlying bone was removed with a TPS drill, this residual area of osteophyte and bone was carefully freed up with the microsurgical dissectors and the thin remaining layer of bone was then lifted away from the spinal canal with the microdissectors. Further bone lateral towards the medial edge of the C7 pedicle was removed with the 2 mm thin footplate Kerrison rongeur. Once overlying bone was removed, it was noted that there was again not a full- thickness layer of dura, but mostly a layer of arachnoid overlying the exiting nerve root fibers. Hypertrophied ligament along the lateral canal was lifted away from the spinal canal to more completely decompress the spinal canal and exiting nerve root fibers at this level. Additional residual osteophyte was located on the right side just below the right C6 pedicle and adjacent to the exiting right C7 nerve root. This osteophyte was very adherent to the surrounding structures, and required quite a bit of careful dissection to free up the osteophyte and lifted away from the exiting nerve root. The TPS drill with a 4 mm miguel bur was then used to remove the posterior inferior aspect of the C6 vertebral body along with an additional portion of the inferior C6 vertebral body where the previous anterior cervical plate screws had been placed at C6. This additional corpectomy allowed further visualization of the anterior thecal sac beneath the C6 vertebral body. A residual area of calcified posterior longitudinal ligament was then freed up from the surrounding tissues with the micro-blade knife and carefully lifted away from the dura and removed. Additional smaller areas of osteophyte and hypertrophied ligament at the anterior canal were removed with the 1 and 2 mm Kerrison rongeur by carefully working up beneath the C6 vertebral body, taking great care not to provide any significant compression of the dura and anterior cord. The smaller pieces bovine pericardial graft that had been placed over the dural defect was quite tightly sealed without residual spinal fluid leakage encountered towards her the procedure. I additional piece of bovine pericardial graft was placed, followed by a thin layer of DuraSeal The appropriate size Depuy carbon fiber cervical cage was then filled with demineralized bone matrix and the patient's retained inferior C6 vertebral body cancellus bone, and placed with a good fit of the graft at the C6-C7 partial corpectomy site. The blunt nerve hook was used to probe beneath the bone graft to ensure that there was no impingement on the thecal sac or exiting nerve roots. The appropriate size Precision anterior cervical plate was then chosen and the bone screws were placed with the 14 mm fixed screws at the caudal most level and the 14 mm variable screws at the cephalad level of the decompression. The screws were firmly secured and the locking cams engaged. The entire construct was checked with intraoperative C-arm and felt to be satisfactory. The closure was performed with 3-0 Vicryl running for the platysma and interrupted for the subcutaneous closure, with 4-0 Vicryl running for the subcuticular closure. A dressing of sterile Mastisol, Steri-Strips, and Primapore dressing was placed. The patient was placed into a cervical collar, and taken to recovery room in stable condition. All counts were correct at the end of the case. Estimated blood loss was 200 cc No specimen was sent to pathology. Intraoperative neuro monitoring remained stable during the procedure. Anticipate further surgical intervention for posterior spinal canal decompression. Don Gamble MD September 11, 2016 00:39
[2016-09-11] MEDS: 1/2 NS + KCL 20 MEQ INJ 1,000 ML IV SCH ×3 (01:04→11:00)
[2016-09-11] MEDS: LEVOTHYROXINE SODIUM 112 MCG TAB PO SCH (05:00)
[2016-09-11] MEDS: HYDROmorphone HCL PF 1 MG/ML VIAL IV PRN ×4 (05:00→19:43)
[2016-09-11 05:04] LABS: MAGNESIUM 2.1 MG/DL (1.5-2.5); POTASSIUM 3.9 MEQ/L (3.5-5.1)
[2016-09-11] MEDS: INSULIN ASPART SUPPLEMENTAL SCALE SQ SCH ×4 (07:00→20:17)
[2016-09-11] MEDS: SODIUM CHLORIDE 0.9% FLUSH 10 ML FLUSH IV FLUSH SCH ×2 (09:00→19:43)
[2016-09-11] MEDS: metFORMIN HCL 500 MG TAB PO SCH ×2 (09:00→16:25)
[2016-09-11] MEDS: PANTOPRAZOLE SOD 40 MG DELAYED RELEASE TAB PO SCH (09:01)
[2016-09-11] MEDS: MULTIVITAMINS/MINERALS THERAPEUTIC TAB PO SCH (09:01)
[2016-09-11] MEDS: GABAPENTIN 300 MG CAP PO SCH ×2 (09:01→17:20)
[2016-09-11] MEDS: BUDESONIDE-FORMOTEROL 160/4.5 MCG INHALER INH SCH ×2 (09:01→19:45)
[2016-09-11] MEDS: ASCORBIC ACID 500 MG TAB PO SCH (09:01)
[2016-09-11] MEDS: DOCUSATE SODIUM 100 MG CAP PO SCH ×2 (09:01→19:43)
[2016-09-11] MEDS: amLODIPine BESYLATE 5 MG TAB PO SCH (09:02)
[2016-09-11] MEDS: LISINOPRIL 20 MG TAB PO SCH (09:02)
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
[2016-09-11] MEDS ORDERED: SODIUM PHOSPHATE INJ 21 MMOL in SODIUM CHLORIDE 0.9% INJ 150 ML IV ONE (13:00)
[2016-09-11] MEDS: DEXAMETHASONE SOD PHOS 4 MG/ML VIAL IV PUSH SCH ×2 (17:20→23:30)
[2016-09-12] VITALS (13 sets, daily range): BP systolic 114–128; BP diastolic 61–81; PULSE 62–82; RESP 11–18; TEMP 97.8–98.5; O2SAT 94–98
[2016-09-12 04:56] LABS: BICARBONATE 25.5 MEQ/L (21.0-32.0); MAGNESIUM 2.1 MG/DL (1.5-2.5); POTASSIUM 4.1 MEQ/L (3.5-5.1)
[2016-09-12] MEDS: INSULIN ASPART SUPPLEMENTAL SCALE SQ SCH ×4 (05:04→22:01)
[2016-09-12] MEDS: DEXAMETHASONE SOD PHOS 4 MG/ML VIAL IV PUSH SCH ×4 (05:06→23:02)
[2016-09-12] MEDS: 1/2 NS + KCL 20 MEQ INJ 1,000 ML IV SCH ×2 (05:06→23:11)
[2016-09-12] MEDS: LEVOTHYROXINE SODIUM 112 MCG TAB PO SCH (05:06)
[2016-09-12] MEDS: HYDROmorphone HCL PF 1 MG/ML VIAL IV PRN ×3 (06:05→19:31)
[2016-09-12] MEDS: MULTIVITAMINS/MINERALS THERAPEUTIC TAB PO SCH (08:33)
[2016-09-12] MEDS: CETIRIZINE HCL 10 MG TAB PO SCH (08:33)
[2016-09-12] MEDS: GABAPENTIN 300 MG CAP PO SCH ×3 (08:33→17:33)
[2016-09-12] MEDS: LISINOPRIL 20 MG TAB PO SCH (08:34)
[2016-09-12] MEDS: amLODIPine BESYLATE 5 MG TAB PO SCH (08:34)
[2016-09-12] MEDS: DOCUSATE SODIUM 100 MG CAP PO SCH ×2 (08:34→22:01)
[2016-09-12] MEDS: ASCORBIC ACID 500 MG TAB PO SCH (08:34)
[2016-09-12] MEDS: PANTOPRAZOLE SOD 40 MG DELAYED RELEASE TAB PO SCH (08:34)
[2016-09-12] MEDS: BUDESONIDE-FORMOTEROL 160/4.5 MCG INHALER INH SCH ×2 (09:00→21:58)
[2016-09-12] MEDS: metFORMIN HCL 500 MG TAB PO SCH ×2 (09:00→18:00)
[2016-09-12] MEDS: SODIUM CHLORIDE 0.9% FLUSH 10 ML FLUSH IV FLUSH SCH ×2 (09:00→21:58)
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
[2016-09-12] MEDS: ACETAMINOPHEN/HYDROcodone 325 MG/10 MG TAB PO PRN (23:02)
[2016-09-12] MEDS: ONDANSETRON HCL 4 MG/2 ML VIAL IV PRN (23:02)
[2016-09-13] VITALS (12 sets, daily range): BP systolic 95–136; BP diastolic 58–84; PULSE 54–91; RESP 11–20; TEMP 97.5–99.1; O2SAT 96–97
[2016-09-13] MEDS: HYDROmorphone HCL PF 1 MG/ML VIAL IV PRN ×2 (04:38→20:07)
[2016-09-13] MEDS: LEVOTHYROXINE SODIUM 112 MCG TAB PO SCH (06:30)
[2016-09-13] MEDS: INSULIN ASPART SUPPLEMENTAL SCALE SQ SCH ×4 (06:30→20:50)
[2016-09-13] MEDS: DEXAMETHASONE SOD PHOS 4 MG/ML VIAL IV PUSH SCH ×3 (06:30→18:25)
[2016-09-13] MEDS: DOCUSATE SODIUM 100 MG CAP PO SCH ×2 (08:18→20:07)
[2016-09-13] MEDS: PANTOPRAZOLE SOD 40 MG DELAYED RELEASE TAB PO SCH (08:18)
[2016-09-13] MEDS: GABAPENTIN 300 MG CAP PO SCH ×3 (08:18→18:25)
[2016-09-13] MEDS: LISINOPRIL 20 MG TAB PO SCH (08:18)
[2016-09-13] MEDS: MULTIVITAMINS/MINERALS THERAPEUTIC TAB PO SCH (08:18)
[2016-09-13] MEDS: amLODIPine BESYLATE 5 MG TAB PO SCH (08:18)
[2016-09-13] MEDS: CETIRIZINE HCL 10 MG TAB PO SCH (08:19)
[2016-09-13] MEDS: ASCORBIC ACID 500 MG TAB PO SCH (08:19)
[2016-09-13] MEDS: metFORMIN HCL 500 MG TAB PO SCH ×2 (08:19→18:25)
[2016-09-13] MEDS: SODIUM CHLORIDE 0.9% FLUSH 10 ML FLUSH IV FLUSH SCH ×2 (08:19→20:07)
[2016-09-13] MEDS: BUDESONIDE-FORMOTEROL 160/4.5 MCG INHALER INH SCH ×2 (08:20→20:07)
--- NOTE | 2016-09-13 11:13 | HHI.NSPN ---
(RenaHilario) Note Status Status: Progress Note (Hilario ChaseYang LARSON) Interval History Interval History 09/07: Indications: 46-year-old female with progressive upper extremity paresthesia. Preoperative CT scan and MRI cervical spine with extremely severe partially calcified chronic appearing herniated nucleus pulposus and posterior osteophytic disc complex with a component of calcified posterior longitudinal ligament was severe spinal cord compression. Findings: Severe chronic appearing C6-7 herniated nucleus pulposis with osteophyte formation. Localized OPLL at the central to left C6-7 level with erosion of the dura 09/08: Patient was awake & alert when seen this morning. She does have a headache and dizziness. She complains of pain to the left elbow and left shoulder which is her major complaint. The left elbow is a sharp pain. PT did evaluate the patient this morning. Nursing reports that the patient had a blood glucose of 183 this morning and that the patient is diabetic. She normally takes metformin at home. 09/09: This morning the patient states she is doing "okay." She states she had a headache all day yesterday that resolved when she laid down. The numbness and pain is now to the whole LUE. Yesterday when her boyfriend was touching her left forearm it was painful. Nursing reports that during the night the patient was having PVCs and did diuresis a large amount of urine. 09/10: The patient was symptomatic and imaging demonstrated a residual portion of the lateral posterior osteophyte possibly impinging on the exiting left C VIII nerve fibers. Therefore she was taken back to the OR today for a surgical revision of the partial C6-C7 corpectomy. When seen post-operatively the patient stated that she was doing good. There was no numbness or pain to the extremities. 09/11: The patient went for a revision of the C6 partial corpectomy, anterior cervical instrumentation & C6-7 level dural defect closure yesterday morning. When seen that afternoon the patient was doing better. After she was seen the patient stated that the numbness returned to both forearms and hands and that the pain also returned on the left. This morning she states that she is doing good and there has been no change. 09/12: The patient states she is doing good this morning. The numbness to the LUE is improved and the pain less since starting the Decadron and adjusting the gabapentin. 09/13: The patient is doing good this morning. She states that the numbness is the same as yesterday. She reports that she slept with the cervical collar off last night and a towel roll beside her head so as to remind her to not move her neck. She has the collar back on since she was watching TV. She also reported that Speech Therapy saw her and that she was able to swallow crackers without any difficulty. (Hilario Chase) Labs, Micro, & Vital Signs Constitutional Vital Signs Date Time Temp Pulse Resp B/P Pulse Ox O2 Delivery O2 Flow Rate FiO2 09/13/16 08:00 56 09/13/16 08:00 98.4 56 18 136/84 97 09/13/16 07:00 97 Room Air 09/13/16 06:00 54 09/13/16 04:00 97.5 61 11 95/59 96 09/13/16 04:00 61 09/13/16 02:00 66 09/13/16 00:00 65 09/13/16 00:00 97.8 65 12 101/58 97 09/12/16 22:00 75 09/12/16 20:00 68 09/12/16 20:00 98.5 68 13 119/61 96 09/12/16 19:00 96 Room Air 09/12/16 18:00 75 09/12/16 16:00 98.2 81 18 114/68 96 09/12/16 16:00 81 09/12/16 14:00 80 09/12/16 12:00 98.5 82 13 120/71 94 09/12/16 12:00 82 09/13/16 07:00 Intake Total 1545 ml Output Total 2457 ml Balance -912 ml (Hilario Chase) Review of Systems/Exam ROS Constitutional: Patient denies any fever or chills. HEENT: Patient denies any sore throat, hoarseness or difficulty swallowing. Neck: Patient denies any pain at present. Respiratory: Patient denies any shortness of breath or productive cough. Cardiovascular: Patient denies any chest pain, palpitations or irregular heart beat. Gastrointestinal: Patient denies any abdominal pain, nausea, vomiting or bowel incontinence. Extremities: Patient states that the pain and weakness to the left forearm and hand are the same. Neurological: Patient still has numbness to the extremities that is the same as yesterday. She denies any headache or dizziness. Exam General: Awake, alert, NAD. HEENT: Normocephalic, atraumatic. Neck: Unga J cervical collar in place. Midline cervical spine NTTP. Left anterior neck with intact surgical dressing dry & intect, no evident drainage, erythema or streaking. Respiratory: CTAB w/o W/R/R, equal excursion, non-laboured, on RA. Cardiovascular: S1S2 w/RRR w/o M/G/R, radial pulses 2+ bilaterally. Monitor is sinus rhythm w/o any ectopy noted. Gastrointestinal: Abdomen soft, nontender, positive bowel sounds. Genitourinary: Colon catheter to BSD w/clear yellow urine. Extremities: EVANS, no evident deformity, discolouration or clubbing noted. The left forearm felt was mildly TTP which minimally increased from the medial wrist to the 3rd, 4th & 5th digits. Neurological: AAOx3 Speech clear & appropriate Follows simple commands Continues with decreased sensation to left forearm & hand, slightly more from the medial wrist down to the 4th & 5th fingers, without any change. Slight numbness to the medial right forearm down to the4th & 5th digit. Still with the same numbness to the lower extremities. 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 (Hilario Chase) Medications Current Medications Current Medications Medications (Trade) Dose Ordered Sig/Lu Route Start Time Stop Time Status Last Admin ([place] 5-325 Mg) 1 tab Q4H PRN PO 09/08/16 00:15 09/08/16 08:47 ([place] 10-325 Mg) 1 tab Q4H PRN PO 09/08/16 00:15 09/12/16 23:02 (Dilaudid Pf Inj) 0.5 mg Q3H PRN IV 09/08/16 00:15 09/13/16 04:38 (Morphine Inj) 4 mg Q3H PRN IV 09/08/16 00:15 (Narcan Inj) 0.4 mg UNSCH PRN IV 09/08/16 00:15 (Colace) 100 mg BID PO 09/08/16 09:00 09/13/16 08:18 (Protonix) 40 mg DAILY PO 09/08/16 09:00 09/13/16 08:18 (Zofran Inj) 4 mg Q6H PRN IV 09/08/16 00:15 09/12/16 23:02 (D50w (Vial) Inj) 50 ml UNSCH PRN IV 09/08/16 10:15 (Glucagon Inj) 1 mg UNSCH PRN OTHER 09/08/16 10:15 (Norvasc) 5 mg DAILY PO 09/09/16 09:00 09/13/16 08:18 (Synthroid) 112 mcg DAILY@06 PO 09/09/16 06:00 09/13/16 06:30 (Prinivil) 20 mg DAILY PO 09/09/16 09:00 09/13/16 08:18 (Glucophage) 1,000 mg BIDPC PO 09/09/16 09:00 09/13/16 08:19 (Ventolin Hfa Inh) 1 puff Q4H PRN INH 09/08/16 21:45 (Vitamin C) 500 mg DAILY PO 09/09/16 09:00 09/13/16 08:19 (ZyrTEC) 10 mg DAILY PO 09/09/16 09:00 09/13/16 08:19 (Symbicort 160-4.5 Inh) 2 puff BID INH 09/09/16 09:00 09/13/16 08:20 (Theragran M Tab) 1 tab DAILY PO 09/09/16 09:00 09/13/16 08:18 Patient Own Medication PT OWN MED: MAGNES... DAILY PO 09/09/16 09:00 Hold Potassium Chloride 100 ml @ 50 mls/hr Q2H PRN IV 09/09/16 21:15 (KCl 20 Meq Premix Inj) 100 ml @ 50 mls/hr Q2H PRN IV 09/09/16 21:15 Potassium Bicarb/ Potassium Chloride 50 meq 50 meq UNSCH PRN PO 09/09/16 21:15 Potassium Chloride 100 ml @ 25 mls/hr UNSCH PRN IV 09/09/16 21:15 Potassium Chloride 100 ml @ 50 mls/hr Q2H PRN IV 09/09/16 21:15 (Magnesium Sulfate Inj/NS Inj) 100 ml @ 50 mls/hr UNSCH PRN IV 09/09/16 21:15 Magnesium Oxide 800 mg 800 mg UNSCH PRN PO 09/09/16 21:15 (Magnesium Sulfate Inj/NS Inj) 100 ml @ 50 mls/hr UNSCH PRN IV 09/09/16 21:15 Potassium Phosphate 2000 mg 2,000 mg Q4H PRN PO 09/09/16 21:15 (Sodium Phosphate Inj/NS 250 ml Inj) 250 ml @ 42 mls/hr UNSCH PRN IV 09/09/16 21:15 09/11/16 05:43 (NS Flush) 2 ml UNSCH PRN IV FLUSH 09/10/16 15:15 Sodium Chloride 2 ml 2 ml BID IV FLUSH 09/10/16 21:00 09/13/16 08:19 (1/2 NS + KCl 20 Meq Inj) 1,000 ml @ 30 mls/hr Q24H IV 09/10/16 15:00 09/12/16 23:11 (Decadron Inj) 4 mg Q6HR IV PUSH 09/11/16 18:00 09/13/16 06:30 (Neurontin) 300 mg TID PO 09/11/16 18:00 09/13/16 08:18 (Hilario Chase) Medical Decision Making MDM Remarks (1) Cervical disc disease with myelopathy (2) 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 Severe cervical degenerative disc disease, multilevel cervical disc herniations with moderate to severe history or osteophytic disc complex 2. Severe C6 7 and moderately severe C5 6 and C7-T1 canal stenosis 3. Cervical myelopathy 4. Ossification posterior longitudinal ligament 5. Intraoperative CSF leak secondary to ossification posterior longitudinal ligament POD # 5 () s/p: 1. C6 7 anterior cervical discectomy, resection of extensive chronic herniated nucleus pulposus and posterior osteophytic disc. 2. Resection C6-7 ossified posterior longitudinal ligament 3. Repair C6-7 dural defect 4. Partial and C7 corpectomy with reconstruction utilizing PEEK cage, demineralized bone matrix 5. C6-7 anterior cervical instrumentation 6. Use of intraoperative microscope high-power magnification for resection chronic posterior ossific disc complex and ossified posterior longitudinal ligament. MRI cervical spine demonstrated stenosis at the C6-7 level with prominent cord edema centrally and a ventral fluid collection which may reflect a CSF leak Lumbar subarachnoid drain placement by Interventional Radiology POD # 2 () s/p: 1. Revision C6 partial corpectomy, resection of additional ossified posterior longitudinal ligament and posterior osteophyte for further spinal cord and nerve decompression. 2. Removal and replacement C6-7 anterior cervical instrumentation 3. Revision of closure of C6-7 level dural defect Intermittent PVCs resolved Hypophosphatemia, resolved Stable neurological exam (Hilario Chase) Plan Plan Remarks Continue neuro checks ST for swallowing Novolog sliding scale insulin low intensity Diet as tolerated Continue Decadron q6h Continue gabapentin TID Will clamp lumbar subarachnoid drain, if no swelling to site tomorrow plan to d/ c Mobilise patient Will reorder PT & OT eval & tx (Hilario Chase) Attending Statement I have personally seen and examined the patient on 09/13/16. Pertinent documentation and study results have been reviewed by the undersigned. I have personally developed the treatment plan and performed medical decision making. Agree with findings, exam, and treatment plan as noted above. Left upper extremity dysesthetic pain gradually improving postoperatively. Left upper extremity strength slowly improving Continuing therapy Continuing steroids Close subarachnoid drain and observe (Don Gamble MD) Hilario Chase September 13, 2016 11:13 Don Gamble MD September 15, 2016 23:46
[2016-09-13] MEDS: ACETAMINOPHEN/HYDROcodone 325 MG/5 MG TAB PO PRN (12:00)
[2016-09-13] MEDS: ACETAMINOPHEN/HYDROcodone 325 MG/10 MG TAB PO PRN (15:47)
[2016-09-13] MEDS: ONDANSETRON HCL 4 MG/2 ML VIAL IV PRN (15:47)
[2016-09-14] VITALS (13 sets, daily range): BP systolic 104–130; BP diastolic 61–74; PULSE 61–75; RESP 11–20; TEMP 97.5–98.7; O2SAT 96–99
[2016-09-14] MEDS: ONDANSETRON HCL 4 MG/2 ML VIAL IV PRN ×3 (00:26→20:32)
[2016-09-14] MEDS: ACETAMINOPHEN/HYDROcodone 325 MG/10 MG TAB PO PRN ×3 (00:26→20:32)
[2016-09-14] MEDS: DEXAMETHASONE SOD PHOS 4 MG/ML VIAL IV PUSH SCH ×2 (00:26→05:11)
[2016-09-14] MEDS: HYDROmorphone HCL PF 1 MG/ML VIAL IV PRN (05:11)
[2016-09-14] MEDS: LEVOTHYROXINE SODIUM 112 MCG TAB PO SCH (05:11)
[2016-09-14] MEDS: 1/2 NS + KCL 20 MEQ INJ 1,000 ML IV SCH (06:50)
[2016-09-14] MEDS: INSULIN ASPART SUPPLEMENTAL SCALE SQ SCH ×4 (07:00→20:33)
[2016-09-14] MEDS: GABAPENTIN 300 MG CAP PO SCH ×4 (08:48→18:02)
[2016-09-14] MEDS: PANTOPRAZOLE SOD 40 MG DELAYED RELEASE TAB PO SCH (08:48)
[2016-09-14] MEDS: MULTIVITAMINS/MINERALS THERAPEUTIC TAB PO SCH (08:48)
[2016-09-14] MEDS: DOCUSATE SODIUM 100 MG CAP PO SCH ×2 (08:49→20:31)
[2016-09-14] MEDS: LISINOPRIL 20 MG TAB PO SCH (08:49)
[2016-09-14] MEDS: amLODIPine BESYLATE 5 MG TAB PO SCH (08:49)
[2016-09-14] MEDS: ASCORBIC ACID 500 MG TAB PO SCH (08:49)
[2016-09-14] MEDS: CETIRIZINE HCL 10 MG TAB PO SCH (08:49)
[2016-09-14] MEDS: metFORMIN HCL 500 MG TAB PO SCH ×2 (08:49→18:02)
[2016-09-14] MEDS: SODIUM CHLORIDE 0.9% FLUSH 10 ML FLUSH IV FLUSH SCH ×2 (08:50→20:31)
[2016-09-14] MEDS: BUDESONIDE-FORMOTEROL 160/4.5 MCG INHALER INH SCH ×2 (08:50→20:31)
--- NOTE | 2016-09-14 10:01 | HHI.NSPN ---
(RenaHilario) Note Status Status: Progress Note (Hilario ChaseYang LARSON) Interval History Interval History 09/07: Indications: 46-year-old female with progressive upper extremity paresthesia. Preoperative CT scan and MRI cervical spine with extremely severe partially calcified chronic appearing herniated nucleus pulposus and posterior osteophytic disc complex with a component of calcified posterior longitudinal ligament was severe spinal cord compression. Findings: Severe chronic appearing C6-7 herniated nucleus pulposis with osteophyte formation. Localized OPLL at the central to left C6-7 level with erosion of the dura 09/08: Patient was awake & alert when seen this morning. She does have a headache and dizziness. She complains of pain to the left elbow and left shoulder which is her major complaint. The left elbow is a sharp pain. PT did evaluate the patient this morning. Nursing reports that the patient had a blood glucose of 183 this morning and that the patient is diabetic. She normally takes metformin at home. 09/09: This morning the patient states she is doing "okay." She states she had a headache all day yesterday that resolved when she laid down. The numbness and pain is now to the whole LUE. Yesterday when her boyfriend was touching her left forearm it was painful. Nursing reports that during the night the patient was having PVCs and did diuresis a large amount of urine. 09/10: The patient was symptomatic and imaging demonstrated a residual portion of the lateral posterior osteophyte possibly impinging on the exiting left C VIII nerve fibers. Therefore she was taken back to the OR today for a surgical revision of the partial C6-C7 corpectomy. When seen post-operatively the patient stated that she was doing good. There was no numbness or pain to the extremities. 09/11: The patient went for a revision of the C6 partial corpectomy, anterior cervical instrumentation & C6-7 level dural defect closure yesterday morning. When seen that afternoon the patient was doing better. After she was seen the patient stated that the numbness returned to both forearms and hands and that the pain also returned on the left. This morning she states that she is doing good and there has been no change. 09/12: The patient states she is doing good this morning. The numbness to the LUE is improved and the pain less since starting the Decadron and adjusting the gabapentin. 09/13: The patient is doing good this morning. She states that the numbness is the same as yesterday. She reports that she slept with the cervical collar off last night and a towel roll beside her head so as to remind her to not move her neck. She has the collar back on since she was watching TV. She also reported that Speech Therapy saw her and that she was able to swallow crackers without any difficulty. 09/14: The patient is doing well this morning, sitting up in a chair and having breakfast. The numbness remains the same. She denies any headache. The lumbar subarachnoid drain was clamped yesterday. (Hilario Chase) Labs, Micro, & Vital Signs Constitutional Vital Signs Date Time Temp Pulse Resp B/P Pulse Ox O2 Delivery O2 Flow Rate FiO2 09/14/16 06:00 62 09/14/16 04:00 98.3 61 20 104/68 97 09/14/16 04:00 61 09/14/16 02:00 63 09/14/16 00:00 64 09/14/16 00:00 98.7 64 11 118/68 96 09/13/16 22:00 75 09/13/16 20:00 98.7 75 12 117/64 97 09/13/16 20:00 75 09/13/16 19:00 96 Room Air 09/13/16 18:00 91 09/13/16 16:00 98.9 72 13 108/58 97 09/13/16 16:00 72 09/13/16 14:00 84 09/13/16 12:00 99.1 77 20 114/62 96 09/13/16 12:00 77 09/13/16 10:00 66 09/14/16 06:59 Intake Total 1075 ml Output Total 2509 ml Balance -1434 ml (Hilario Chase) Review of Systems/Exam ROS Constitutional: Patient denies any fever or chills. HEENT: Patient denies any sore throat, hoarseness or difficulty swallowing. Neck: Patient denies any pain at present. Respiratory: Patient denies any shortness of breath or productive cough. Cardiovascular: Patient denies any chest pain, palpitations or irregular heart beat. Gastrointestinal: Patient denies any abdominal pain, nausea, vomiting or bowel incontinence. Extremities: Patient states that the pain and weakness to the left forearm and hand are the same. Neurological: Patient still has numbness to the extremities that remains without any change. She denies any headache or dizziness. Exam General: Awake, alert, NAD. HEENT: Normocephalic, atraumatic. Neck: Burna J cervical collar in place. Midline cervical spine NTTP. Left anterior neck with intact surgical dressing dry & intect, no evident drainage, erythema or streaking. Respiratory: CTAB w/o W/R/R, equal excursion, non-laboured, on RA. Cardiovascular: S1S2 w/RRR w/o M/G/R, radial pulses 2+ bilaterally. Monitor is sinus rhythm w/o any ectopy noted. Gastrointestinal: Abdomen soft, nontender, positive bowel sounds. Genitourinary: Colon catheter to BSD w/clear yellow urine. Extremities: EVANS, no evident deformity, discolouration or clubbing noted. The left forearm felt was mildly TTP which minimally increased from the medial wrist to the 3rd, 4th & 5th digits. Back: The lumbar drain insertion site is without any evident drainage, erythema , streaking or swelling, the catheter appears intact. The system is clamped. Neurological: AAOx3 Speech clear & appropriate Follows simple commands Continues with decreased sensation to left forearm & hand, slightly more from the medial wrist down to the 4th & 5th fingers, without any change. Slight numbness to the medial right forearm down to the4th & 5th digit. Still with the same numbness to the lower extremities. 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 (Hilario Chase) Medications Current Medications Current Medications Medications (Trade) Dose Ordered Sig/Lu Route Start Time Stop Time Status Last Admin ([place] 5-325 Mg) 1 tab Q4H PRN PO 09/08/16 00:15 09/13/16 12:00 ([place] 10-325 Mg) 1 tab Q4H PRN PO 09/08/16 00:15 09/14/16 00:26 (Dilaudid Pf Inj) 0.5 mg Q3H PRN IV 09/08/16 00:15 09/14/16 05:11 (Morphine Inj) 4 mg Q3H PRN IV 09/08/16 00:15 (Narcan Inj) 0.4 mg UNSCH PRN IV 09/08/16 00:15 (Colace) 100 mg BID PO 09/08/16 09:00 09/14/16 08:49 (Protonix) 40 mg DAILY PO 09/08/16 09:00 09/14/16 08:48 (Zofran Inj) 4 mg Q6H PRN IV 09/08/16 00:15 09/14/16 00:26 (D50w (Vial) Inj) 50 ml UNSCH PRN IV 09/08/16 10:15 (Glucagon Inj) 1 mg UNSCH PRN OTHER 09/08/16 10:15 (Norvasc) 5 mg DAILY PO 09/09/16 09:00 09/14/16 08:49 (Synthroid) 112 mcg DAILY@06 PO 09/09/16 06:00 09/14/16 05:11 (Prinivil) 20 mg DAILY PO 09/09/16 09:00 09/14/16 08:49 (Glucophage) 1,000 mg BIDPC PO 09/09/16 09:00 09/14/16 08:49 (Ventolin Hfa Inh) 1 puff Q4H PRN INH 09/08/16 21:45 (Vitamin C) 500 mg DAILY PO 09/09/16 09:00 09/14/16 08:49 (ZyrTEC) 10 mg DAILY PO 09/09/16 09:00 09/14/16 08:49 (Symbicort 160-4.5 Inh) 2 puff BID INH 09/09/16 09:00 09/14/16 08:50 (Theragran M Tab) 1 tab DAILY PO 09/09/16 09:00 09/14/16 08:48 Patient Own Medication PT OWN MED: MAGNES... DAILY PO 09/09/16 09:00 Hold Potassium Chloride 100 ml @ 50 mls/hr Q2H PRN IV 09/09/16 21:15 (KCl 20 Meq Premix Inj) 100 ml @ 50 mls/hr Q2H PRN IV 09/09/16 21:15 Potassium Bicarb/ Potassium Chloride 50 meq 50 meq UNSCH PRN PO 09/09/16 21:15 Potassium Chloride 100 ml @ 25 mls/hr UNSCH PRN IV 09/09/16 21:15 Potassium Chloride 100 ml @ 50 mls/hr Q2H PRN IV 09/09/16 21:15 (Magnesium Sulfate Inj/NS Inj) 100 ml @ 50 mls/hr UNSCH PRN IV 09/09/16 21:15 Magnesium Oxide 800 mg 800 mg UNSCH PRN PO 09/09/16 21:15 (Magnesium Sulfate Inj/NS Inj) 100 ml @ 50 mls/hr UNSCH PRN IV 09/09/16 21:15 Potassium Phosphate 2000 mg 2,000 mg Q4H PRN PO 09/09/16 21:15 (Sodium Phosphate Inj/NS 250 ml Inj) 250 ml @ 42 mls/hr UNSCH PRN IV 09/09/16 21:15 09/11/16 05:43 (NS Flush) 2 ml UNSCH PRN IV FLUSH 09/10/16 15:15 Sodium Chloride 2 ml 2 ml BID IV FLUSH 09/10/16 21:00 09/14/16 08:50 (1/2 NS + KCl 20 Meq Inj) 1,000 ml @ 30 mls/hr Q24H IV 09/10/16 15:00 09/12/16 23:11 (Decadron Inj) 4 mg Q6HR IV PUSH 09/11/16 18:00 09/14/16 05:11 (Neurontin) 300 mg TID PO 09/11/16 18:00 09/14/16 08:48 (Hilario Chase) Medical Decision Making MDM Remarks (1) Cervical disc disease with myelopathy (2) 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 Severe cervical degenerative disc disease, multilevel cervical disc herniations with moderate to severe history or osteophytic disc complex 2. Severe C6 7 and moderately severe C5 6 and C7-T1 canal stenosis 3. Cervical myelopathy 4. Ossification posterior longitudinal ligament 5. Intraoperative CSF leak secondary to ossification posterior longitudinal ligament POD # 7 () s/p: 1. C6 7 anterior cervical discectomy, resection of extensive chronic herniated nucleus pulposus and posterior osteophytic disc. 2. Resection C6-7 ossified posterior longitudinal ligament 3. Repair C6-7 dural defect 4. Partial and C7 corpectomy with reconstruction utilizing PEEK cage, demineralized bone matrix 5. C6-7 anterior cervical instrumentation 6. Use of intraoperative microscope high-power magnification for resection chronic posterior ossific disc complex and ossified posterior longitudinal ligament. MRI cervical spine demonstrated stenosis at the C6-7 level with prominent cord edema centrally and a ventral fluid collection which may reflect a CSF leak Lumbar subarachnoid drain placement by Interventional Radiology POD # 4 () s/p: 1. Revision C6 partial corpectomy, resection of additional ossified posterior longitudinal ligament and posterior osteophyte for further spinal cord and nerve decompression. 2. Removal and replacement C6-7 anterior cervical instrumentation 3. Revision of closure of C6-7 level dural defect Intermittent PVCs resolved Hypophosphatemia, resolved Stable neurological exam Lumbar subarachnoid insertion site looks good, no swelling (Hilario Chase ) Plan Plan Remarks Continue neuro checks ST for swallowing Novolog sliding scale insulin low intensity Diet as tolerated Will change Decadron to PO and start tapering dose Will change gabapentin 300 mg TID to 300-600-300 Will d/c lumbar subarachnoid drain, flat in bed for 6 hrs then able to mobilise Will d/c IVF Will d/c Colon catheter once patient is able to mobilise Plan to transfer to floor later today MRI cervical spine in AM Possible d/c home tomorrow (Hilario Chase) Attending Statement I have personally seen and examined the patient on 09/14/16. Pertinent documentation and study results have been reviewed by the undersigned. I have personally developed the treatment plan and performed medical decision making. Agree with findings, exam, and treatment plan as noted above. No signs or symptoms to suggest persistent CSF leak. Remove lumbar subarachnoid drain and mobilize out of bed later on today. Continue therapy Plan follow-up MRI scan postop. (Don Gamble MD) Hilario Chase September 14, 2016 10:01 Don Gamble MD September 15, 2016 23:47
[2016-09-14] MEDS: DEXAMETHASONE 4 MG TAB PO SCH ×3 (12:51→23:17)
[2016-09-15] MEDS: HYDROmorphone HCL PF 1 MG/ML VIAL IV PRN ×2 (04:16→09:52)
[2016-09-15] MEDS: DEXAMETHASONE 4 MG TAB PO SCH ×3 (04:16→18:58)
[2016-09-15] MEDS: LEVOTHYROXINE SODIUM 112 MCG TAB PO SCH (04:17)
[2016-09-15] MEDS: INSULIN ASPART SUPPLEMENTAL SCALE SQ SCH ×4 (04:17→20:35)
[2016-09-15 04:27] VITALS: BP 125/68; PULSE 64; RESP 16; TEMP 97.4; O2SAT 96
[2016-09-15 08:00] VITALS: BP 115/65; PULSE 61; RESP 20; TEMP 98.6; O2SAT 98
[2016-09-15] MEDS: DOCUSATE SODIUM 100 MG CAP PO SCH ×2 (09:48→20:36)
[2016-09-15] MEDS: SODIUM CHLORIDE 0.9% FLUSH 10 ML FLUSH IV FLUSH SCH ×2 (09:48→20:36)
[2016-09-15] MEDS: BUDESONIDE-FORMOTEROL 160/4.5 MCG INHALER INH SCH ×2 (09:48→20:36)
[2016-09-15] MEDS: ASCORBIC ACID 500 MG TAB PO SCH (09:49)
[2016-09-15] MEDS: PANTOPRAZOLE SOD 40 MG DELAYED RELEASE TAB PO SCH (09:49)
[2016-09-15] MEDS: metFORMIN HCL 500 MG TAB PO SCH ×2 (09:49→18:59)
[2016-09-15] MEDS: MULTIVITAMINS/MINERALS THERAPEUTIC TAB PO SCH (09:49)
[2016-09-15] MEDS: amLODIPine BESYLATE 5 MG TAB PO SCH (09:49)
[2016-09-15] MEDS: GABAPENTIN 300 MG CAP PO SCH ×4 (09:49→18:58)
[2016-09-15] MEDS: CETIRIZINE HCL 10 MG TAB PO SCH (09:50)
[2016-09-15] MEDS: LISINOPRIL 20 MG TAB PO SCH (09:50)
[2016-09-15 12:00] VITALS: BP 121/70; PULSE 70; RESP 20; TEMP 98.5; O2SAT 98
[2016-09-15] MEDS: ACETAMINOPHEN/HYDROcodone 325 MG/5 MG TAB PO PRN ×2 (12:54→18:58)
[2016-09-15] MEDS: ONDANSETRON HCL 4 MG/2 ML VIAL IV PRN (12:58)
--- NOTE | 2016-09-15 13:36 | HHI.NSPN ---
(HollowayHilario) Note Status Status: Progress Note (Hilario ChaseYang LARSON) Interval History Interval History 09/07: Indications: 46-year-old female with progressive upper extremity paresthesia. Preoperative CT scan and MRI cervical spine with extremely severe partially calcified chronic appearing herniated nucleus pulposus and posterior osteophytic disc complex with a component of calcified posterior longitudinal ligament was severe spinal cord compression. Findings: Severe chronic appearing C6-7 herniated nucleus pulposis with osteophyte formation. Localized OPLL at the central to left C6-7 level with erosion of the dura 09/08: Patient was awake & alert when seen this morning. She does have a headache and dizziness. She complains of pain to the left elbow and left shoulder which is her major complaint. The left elbow is a sharp pain. PT did evaluate the patient this morning. Nursing reports that the patient had a blood glucose of 183 this morning and that the patient is diabetic. She normally takes metformin at home. 09/09: This morning the patient states she is doing "okay." She states she had a headache all day yesterday that resolved when she laid down. The numbness and pain is now to the whole LUE. Yesterday when her boyfriend was touching her left forearm it was painful. Nursing reports that during the night the patient was having PVCs and did diuresis a large amount of urine. 09/10: The patient was symptomatic and imaging demonstrated a residual portion of the lateral posterior osteophyte possibly impinging on the exiting left C VIII nerve fibers. Therefore she was taken back to the OR today for a surgical revision of the partial C6-C7 corpectomy. When seen post-operatively the patient stated that she was doing good. There was no numbness or pain to the extremities. 09/11: The patient went for a revision of the C6 partial corpectomy, anterior cervical instrumentation & C6-7 level dural defect closure yesterday morning. When seen that afternoon the patient was doing better. After she was seen the patient stated that the numbness returned to both forearms and hands and that the pain also returned on the left. This morning she states that she is doing good and there has been no change. 09/12: The patient states she is doing good this morning. The numbness to the LUE is improved and the pain less since starting the Decadron and adjusting the gabapentin. 09/13: The patient is doing good this morning. She states that the numbness is the same as yesterday. She reports that she slept with the cervical collar off last night and a towel roll beside her head so as to remind her to not move her neck. She has the collar back on since she was watching TV. She also reported that Speech Therapy saw her and that she was able to swallow crackers without any difficulty. 09/14: The patient is doing well this morning, sitting up in a chair and having breakfast. The numbness remains the same. She denies any headache. The lumbar subarachnoid drain was clamped yesterday. 09/15: The patient is doing good this afternoon when seen. She is in the chair and having lunch. She has no headache although she does have some dizziness if she moves to quickly. The lumbar subarachnoid drain was removed late yesterday morning. She was transferred to a regular med/surg floor in the evening. ( Hilario Chaes) Labs, Micro, & Vital Signs Constitutional Vital Signs Date Time Temp Pulse Resp B/P Pulse Ox O2 Delivery O2 Flow Rate FiO2 09/15/16 12:00 98.5 70 20 121/70 98 09/15/16 08:00 98.6 61 20 115/65 98 09/15/16 04:27 97.4 64 16 125/68 96 09/15/16 00:00 Room Air 09/14/16 22:58 97.5 68 15 112/68 98 09/14/16 22:00 65 09/14/16 21:32 12 09/14/16 20:00 68 09/14/16 20:00 98.3 68 11 129/74 97 09/14/16 19:00 100 Room Air 09/14/16 18:00 69 09/14/16 16:00 98.4 68 14 110/61 99 09/14/16 16:00 68 09/14/16 14:00 72 09/15/16 07:00 Intake Total 1680 ml Output Total 2400 ml Balance -720 ml (Hilario Chase) Review of Systems/Exam ROS Constitutional: Patient denies any fever or chills. HEENT: Patient denies any sore throat, hoarseness or difficulty swallowing. Neck: Patient states the incision area is sore. Respiratory: Patient denies any shortness of breath or productive cough. Cardiovascular: Patient denies any chest pain, palpitations or irregular heart beat. Gastrointestinal: Patient is having trouble moving her bowels. She denies any abdominal pain, nausea, vomiting or bowel incontinence. Extremities: Patient states that the pain and weakness to the left forearm and hand are the same. Neurological: Patient still has numbness to the extremities that remains without any change. She has some dizziness if she moves too quickly but denies any headache. Exam General: Awake, alert, NAD. HEENT: Normocephalic, atraumatic. Neck: Pala J cervical collar in place. Midline cervical spine NTTP. Left anterior neck with intact surgical dressing dry & intact, no shadowing noted on the dressing. Respiratory: CTAB w/o W/R/R, equal excursion, non-laboured, on RA. Cardiovascular: S1S2 w/RRR w/o M/G/R, radial pulses 2+ bilaterally. Gastrointestinal: Abdomen soft, nontender, positive bowel sounds. Extremities: EVANS, no evident deformity, discolouration or clubbing noted. The left forearm felt was mildly TTP which minimally increased from the medial wrist to the 3rd, 4th & 5th digits. Back: The lumbar drain insertion site is without any evident drainage, erythema , streaking or swelling, the dressing has been rolled away from the site. Neurological: AAOx3 Speech clear & appropriate Follows simple commands Continues with decreased sensation to left forearm & hand, slightly more from the medial wrist down to the 4th & 5th fingers, without any change. Slight numbness to the medial right forearm down to the4th & 5th digit. Still with the same numbness to the lower extremities. Motor strength 5/5 except for left hand drawer upfitter 4/5 and left hand intrinsics & extensors 3/5. (Hilario Chase) Medications Current Medications Current Medications Medications (Trade) Dose Ordered Sig/Lu Route Start Time Stop Time Status Last Admin (Berwick 5-325 Mg) 1 tab Q4H PRN PO 09/08/16 00:15 09/15/16 12:54 (Berwick 10-325 Mg) 1 tab Q4H PRN PO 09/08/16 00:15 09/14/16 20:32 (Dilaudid Pf Inj) 0.5 mg Q3H PRN IV 09/08/16 00:15 09/15/16 09:52 (Morphine Inj) 4 mg Q3H PRN IV 09/08/16 00:15 (Narcan Inj) 0.4 mg UNSCH PRN IV 09/08/16 00:15 (Colace) 100 mg BID PO 09/08/16 09:00 09/15/16 09:48 (Protonix) 40 mg DAILY PO 09/08/16 09:00 09/15/16 09:49 (Zofran Inj) 4 mg Q6H PRN IV 09/08/16 00:15 09/15/16 12:58 (D50w (Vial) Inj) 50 ml UNSCH PRN IV 09/08/16 10:15 (Glucagon Inj) 1 mg UNSCH PRN OTHER 09/08/16 10:15 (Norvasc) 5 mg DAILY PO 09/09/16 09:00 09/15/16 09:49 (Synthroid) 112 mcg DAILY@06 PO 09/09/16 06:00 09/15/16 04:17 (Prinivil) 20 mg DAILY PO 09/09/16 09:00 09/15/16 09:50 (Glucophage) 1,000 mg BIDPC PO 09/09/16 09:00 09/15/16 09:49 (Ventolin Hfa Inh) 1 puff Q4H PRN INH 09/08/16 21:45 (Vitamin C) 500 mg DAILY PO 09/09/16 09:00 09/15/16 09:49 (ZyrTEC) 10 mg DAILY PO 09/09/16 09:00 09/15/16 09:50 (Symbicort 160-4.5 Inh) 2 puff BID INH 09/09/16 09:00 09/15/16 09:48 (Theragran M Tab) 1 tab DAILY PO 09/09/16 09:00 09/15/16 09:49 Patient Own Medication PT OWN MED: MAGNES... DAILY PO 09/09/16 09:00 Hold Potassium Chloride 100 ml @ 50 mls/hr Q2H PRN IV 09/09/16 21:15 (KCl 20 Meq Premix Inj) 100 ml @ 50 mls/hr Q2H PRN IV 09/09/16 21:15 Potassium Bicarb/ Potassium Chloride 50 meq 50 meq UNSCH PRN PO 09/09/16 21:15 Potassium Chloride 100 ml @ 25 mls/hr UNSCH PRN IV 09/09/16 21:15 Potassium Chloride 100 ml @ 50 mls/hr Q2H PRN IV 09/09/16 21:15 (Magnesium Sulfate Inj/NS Inj) 100 ml @ 50 mls/hr UNSCH PRN IV 09/09/16 21:15 Magnesium Oxide 800 mg 800 mg UNSCH PRN PO 09/09/16 21:15 (Magnesium Sulfate Inj/NS Inj) 100 ml @ 50 mls/hr UNSCH PRN IV 09/09/16 21:15 Potassium Phosphate 2000 mg 2,000 mg Q4H PRN PO 09/09/16 21:15 (Sodium Phosphate Inj/NS 250 ml Inj) 250 ml @ 42 mls/hr UNSCH PRN IV 09/09/16 21:15 09/11/16 05:43 (NS Flush) 2 ml UNSCH PRN IV FLUSH 09/10/16 15:15 09/15/16 12:58 (NS Flush) 2 ml BID IV FLUSH 09/10/16 21:00 09/15/16 09:48 (Neurontin) 300 mg TID PO 09/11/16 18:00 09/15/16 12:41 (Decadron) 4 mg Q6HR PO 09/14/16 12:00 09/15/16 12:41 (Neurontin) 300 mg DAILY@13 PO 09/14/16 13:00 09/15/16 12:42 (Hilario Chase) Medical Decision Making MDM Remarks (1) Cervical disc disease with myelopathy (2) 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 Severe cervical degenerative disc disease, multilevel cervical disc herniations with moderate to severe history or osteophytic disc complex 2. Severe C6 7 and moderately severe C5 6 and C7-T1 canal stenosis 3. Cervical myelopathy 4. Ossification posterior longitudinal ligament 5. Intraoperative CSF leak secondary to ossification posterior longitudinal ligament POD # 8 () s/p: 1. C6 7 anterior cervical discectomy, resection of extensive chronic herniated nucleus pulposus and posterior osteophytic disc. 2. Resection C6-7 ossified posterior longitudinal ligament 3. Repair C6-7 dural defect 4. Partial and C7 corpectomy with reconstruction utilizing PEEK cage, demineralized bone matrix 5. C6-7 anterior cervical instrumentation 6. Use of intraoperative microscope high-power magnification for resection chronic posterior ossific disc complex and ossified posterior longitudinal ligament. MRI cervical spine demonstrated stenosis at the C6-7 level with prominent cord edema centrally and a ventral fluid collection which may reflect a CSF leak Lumbar subarachnoid drain placement by Interventional Radiology POD # 5() s/p: 1. Revision C6 partial corpectomy, resection of additional ossified posterior longitudinal ligament and posterior osteophyte for further spinal cord and nerve decompression. 2. Removal and replacement C6-7 anterior cervical instrumentation 3. Revision of closure of C6-7 level dural defect Intermittent PVCs resolved Hypophosphatemia, resolved Stable neurological exam Lumbar subarachnoid insertion site looks good, no swelling or drainage Physical Therapy is recommending inpatient rehab prior to discharge (Hilario Chase) Plan Plan Remarks Continue neuro checks ST for swallowing Novolog sliding scale insulin low intensity Diet as tolerated Decadron taper Gabapentin 300-600-300 MRI cervical spine pending Will discuss discharge options with Dr Gamble (Hilario Chase) Attending Statement I have personally seen and examined the patient on 09/15/16. Pertinent documentation and study results have been reviewed by the undersigned. I have personally developed the treatment plan and performed medical decision making. Agree with findings, exam, and treatment plan as noted above. Left hand intrinsics mostly 3/5. Normal wrist flexion and extension. Left upper extremity pain now approximately 4/10 severity. Therapy notes reviewed. Discussed discharge plans with patient Consider short course of inpatient rehabilitation 09/15/16 MRI cervical spine images reviewed. Satisfactory anterior decompression. No definite CSF leak. Anticipate that she will require a staged posterior decompression once the anterior operative site is adequately healed. Discussed with patient (Don Gamble MD) Hilario Chase September 15, 2016 13:36 Don Gamble MD September 15, 2016 23:49
[2016-09-15 16:00] VITALS: BP 147/72; PULSE 70; RESP 18; TEMP 97.8; O2SAT 98
[2016-09-15] MEDS ORDERED: GADODIAMIDE PF 287 MG/ML 20 ML VIAL (for RAD MRI) IV ONE (16:32)
--- NOTE | 2016-09-15 16:52 | RADRPT ---
EXAM DATE/TIME: 09/15/2016 16:02 [facility] COMPARISON: MRI CERVICAL SPINE W/O CONTRAST, September 08, 2016, 11:31. CT CERVICAL SPINE W/O CONTRAST, September 09, 2016, 11:20. FLUOROSCOPY PORTABLE UP TO 1HR, September 10, 2016, 0:00. INDICATIONS : Right hand and bilateral leg tingling and left arm pain. CONTRAST: 20 cc Omniscan (gadodiamide) IV MEDICAL HISTORY : Hypertension. Diabetes mellitus type 2. SURGICAL HISTORY : Cholecystectomy. Tubal ligation. Fusion, cervical. CSF drain and patch. ENCOUNTER: Subsequent ACUITY: 1 week PAIN SCORE: 0/10 LOCATION: neck. TECHNIQUE: Multiplanar, multisequence MRI examination of the cervical spine was performed. FINDINGS: C6-7 fusion is again noted. There is persistent edema in the central cord dorsal to the fusion level, however this appears slightly improved. Mild disc protrusions are again noted at the non-fused level s which appear unchanged. No new acute findings are identified. CONCLUSION: Slight interval reduction in cord edema. No new acute findings Gustavo Nascimento MD on September 15, 2016 at 16:44 Board Certified Radiologist. This report was verified electronically.
[2016-09-15 19:00] VITALS: BP 126/66; PULSE 68; RESP 17; TEMP 97.1; O2SAT 96
[2016-09-16] VITALS: BP 114/68; PULSE 68; RESP 17; TEMP 96.8; O2SAT 97
[2016-09-16] MEDS ORDERED: BISACODYL 10 MG SUPP RECTAL PRN
[2016-09-16 04:00] VITALS: BP 119/86; PULSE 63; RESP 17; TEMP 97; O2SAT 98
[2016-09-16] MEDS: LEVOTHYROXINE SODIUM 112 MCG TAB PO SCH (05:27)
[2016-09-16] MEDS: ONDANSETRON HCL 4 MG/2 ML VIAL IV PRN ×2 (05:27→21:35)
[2016-09-16] MEDS: ACETAMINOPHEN/HYDROcodone 325 MG/5 MG TAB PO PRN (05:27)
[2016-09-16] MEDS: INSULIN ASPART SUPPLEMENTAL SCALE SQ SCH ×4 (06:11→21:00)
[2016-09-16 08:02] VITALS: BP 113/68; PULSE 62; RESP 16; TEMP 97.1; O2SAT 98
[2016-09-16] MEDS: metFORMIN HCL 500 MG TAB PO SCH ×2 (09:23→17:42)
[2016-09-16] MEDS: CETIRIZINE HCL 10 MG TAB PO SCH (09:23)
[2016-09-16] MEDS: DOCUSATE SODIUM 50 MG/SENNA 8.6 MG TAB PO SCH ×2 (09:23→21:30)
[2016-09-16] MEDS: GABAPENTIN 300 MG CAP PO SCH ×4 (09:24→17:42)
[2016-09-16] MEDS: PANTOPRAZOLE SOD 40 MG DELAYED RELEASE TAB PO SCH (09:24)
[2016-09-16] MEDS: LISINOPRIL 20 MG TAB PO SCH (09:24)
[2016-09-16] MEDS: DEXAMETHASONE 1.5 MG TAB PO SCH ×3 (09:24→17:42)
[2016-09-16] MEDS: MULTIVITAMINS/MINERALS THERAPEUTIC TAB PO SCH (09:24)
[2016-09-16] MEDS: amLODIPine BESYLATE 5 MG TAB PO SCH (09:24)
[2016-09-16] MEDS: ASCORBIC ACID 500 MG TAB PO SCH (09:24)
[2016-09-16] MEDS: ACETAMINOPHEN/HYDROcodone 325 MG/10 MG TAB PO PRN ×3 (09:25→21:29)
[2016-09-16] MEDS: BUDESONIDE-FORMOTEROL 160/4.5 MCG INHALER INH SCH ×2 (09:28→21:30)
[2016-09-16] MEDS: SODIUM CHLORIDE 0.9% FLUSH 10 ML FLUSH IV FLUSH SCH ×2 (09:28→21:30)
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
[2016-09-16 12:02] VITALS: BP 120/64; PULSE 66; RESP 16; TEMP 97.4; O2SAT 97
--- NOTE | 2016-09-16 13:43 | HHI.FF ---
Face to Face Verification Diagnosis: (1) CSF leak (2) Cervical disc disease with myelopathy Physical Therapy Order: Evaluate and Treat Occupational Therapy Order: Evaluate and Treat Home Health Nursing Order: Nursing assessment with vital signs I have seen patient Jacy Jennings on 09/16/16. My clinical findings support the need for the requested home health care services because: Limited ability to care for self High risk of falls I certify that my clinical findings support that this patient is homebound because: Post-op weakness Unsteady gait/balance Hilario Chase EMAIL MARKETING PROCESSOR September 16, 2016 13:43
[2016-09-16 16:10] VITALS: BP 127/65; PULSE 68; RESP 16; TEMP 97.7; O2SAT 98
--- NOTE | 2016-09-16 16:22 | HHI.DS ---
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 C6 7 anterior cervical discectomy, resection of extensive chronic herniated nucleus pulposus and posterior osteophytic disc. 2. Resection C6-7 ossified posterior longitudinal ligament 3. Repair C6-7 dural defect 4. Partial and C7 corpectomy with reconstruction utilizing PEEK cage, demineralized bone matrix 5. C6-7 anterior cervical instrumentation 6. Use of intraoperative microscope high-power magnification for resection chronic posterior ossific disc complex and ossified posterior longitudinal ligament. Surgical procedure # 2 (): 1. Revision C6 partial corpectomy, resection of additional ossified posterior longitudinal ligament and posterior osteophyte for further spinal cord and nerve decompression. 2. Removal and replacement C6-7 anterior cervical instrumentation 3. Revision of closure of C6-7 level dural defect Interventional Radiology procedure (): Lumbar subarachnoid drain placement CBC/BMP: 09/12/16 0416 Hospital Course The patient was admitted to [facility] for surgery on . Post- operatively she was admitted to the [facility]. She had a CSF leak and went to Interventional Radiology on for placement of a lumbar subarachnoid drain. Due to a worsening clinical examination and persistent cord edema on MRI the patient was taken back to the operating room on . She again returned to the [facility]. The lumbar drain was removed on and transferred to a regular med/surg floor that evening. She worked with Physical & Occupational Therapy who felt that she was able to be discharged home with [facility] for further therapy. She was ambulating 800 feet using with a wheeled walker with standby assistance. She was tolerating a diet. She did have persistent numbness to the left forearm and hand. She also had numbness to both legs as well which she had prior to admission. Pt Condition on Discharge: Good Discharge Disposition: Disch w/ Home Health Serv Discharge Instructions DIET: Follow Instructions for: As Tolerated, No Restrictions Speech Therapy-Diet Recommenda: Regular ACTIVITIES You can perform: Weight Bearing As [place] Activities to Avoid: Lifting/Bending, Strenuous Activity ADDITIONAL Activity Instructio: Wear the cervical collar when out-of-bed sitting or walking. Additional Information Call for a follow up appointment in [address] Gamble Keep the dressing to the surgical site dry for 7 days after surgery. After that you may take the outer dressing off but leave the steri-strips on. You may then shower and let the steri-strips fall off in the shower. Avoid any products containing aspirin or NSAIDS (ibuprofen, Motrin, Advil, Aleve , etc.). Hilario Chase September 16, 2016 16:22
--- NOTE | 2016-09-16 16:25 | HHI.DCPOC ---
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 (3) CSF leak Your Health Problems Are: Difficulty with ADL Incision/Drains Exercise Tolerance Goals to Promote Your Health * To prevent worsening of your condition and complications Wear the cervical collar when ever out-of-bed sitting or walking * To maintain your health at the optimal level Directions to Meet Your Goals Take your medications as prescribed Follow your dietary instruction Follow activity as directed Keep your appointments as scheduled Take your immunizations and boosters as scheduled If your symptoms worsen call your PCP, if no PCP go to Urgent Care Center or Emergency Room Smoking is Dangerous to Your Health. Avoid second hand smoke Call the 24-hour hour crisis hotline for domestic abuse at Hilario Chase September 16, 2016 16:24
[2016-09-16] MEDS ORDERED: LIDOCAINE HCL 1% 20 ML VIAL INFIL ONE (18:45)
[2016-09-16] MEDS ORDERED: LIDOCAINE HCL 1% 50 ML VIAL ONE (18:47)
[2016-09-16 19:00] VITALS: BP 121/67; PULSE 71; RESP 17; TEMP 97.9; O2SAT 96
[2016-09-17] VITALS: BP 131/66; PULSE 64; RESP 16; TEMP 96.3; O2SAT 98
[2016-09-17 04:00] VITALS: BP 117/69; PULSE 62; RESP 18; TEMP 95.8; O2SAT 97
[2016-09-17] MEDS: LEVOTHYROXINE SODIUM 112 MCG TAB PO SCH (05:41)
[2016-09-17] MEDS: ACETAMINOPHEN/HYDROcodone 325 MG/10 MG TAB PO PRN ×3 (05:41→18:35)
[2016-09-17] MEDS: INSULIN ASPART SUPPLEMENTAL SCALE SQ SCH ×3 (07:00→16:00)
[2016-09-17 08:04] VITALS: BP 121/69; PULSE 64; RESP 16; TEMP 96.6; O2SAT 99
[2016-09-17] MEDS ORDERED: HYDR-3583 PO (08:30)
[2016-09-17] MEDS ORDERED: DEXA1.5T PO (08:30)
[2016-09-17] MEDS ORDERED: NEUR300C PO (08:30)
[2016-09-17] MEDS ORDERED: PROT40TA PO (08:30)
[2016-09-17] MEDS: GABAPENTIN 300 MG CAP PO SCH ×3 (08:50→18:36)
[2016-09-17] MEDS: DOCUSATE SODIUM 50 MG/SENNA 8.6 MG TAB PO SCH (08:50)
[2016-09-17] MEDS: DEXAMETHASONE 1.5 MG TAB PO SCH ×3 (08:51→18:35)
[2016-09-17] MEDS: MULTIVITAMINS/MINERALS THERAPEUTIC TAB PO SCH (08:51)
[2016-09-17] MEDS: metFORMIN HCL 500 MG TAB PO SCH ×2 (08:51→18:35)
[2016-09-17] MEDS: CETIRIZINE HCL 10 MG TAB PO SCH (08:51)
[2016-09-17] MEDS: PANTOPRAZOLE SOD 40 MG DELAYED RELEASE TAB PO SCH (08:51)
[2016-09-17] MEDS: amLODIPine BESYLATE 5 MG TAB PO SCH (08:51)
[2016-09-17] MEDS: ASCORBIC ACID 500 MG TAB PO SCH (08:51)
[2016-09-17] MEDS: LISINOPRIL 20 MG TAB PO SCH (08:51)
[2016-09-17] MEDS: BUDESONIDE-FORMOTEROL 160/4.5 MCG INHALER INH SCH (08:53)
[2016-09-17] MEDS: SODIUM CHLORIDE 0.9% FLUSH 10 ML FLUSH IV FLUSH SCH (08:53)
[2016-09-17] MEDS ORDERED: MIDAZOLAM HCL 5 MG/5 ML VIAL ONE (11:07)
[2016-09-17] MEDS ORDERED: MIDAZOLAM HCL 5 MG/5 ML VIAL IV ONE (12:00)
[2016-09-17 12:02] VITALS: BP 130/72; PULSE 64; RESP 16; TEMP 96.6; O2SAT 98
[2016-09-17 16:02] VITALS: BP 118/60; PULSE 65; RESP 16; TEMP 97.4; O2SAT 98
[2016-10-06] MEDS ORDERED: ASCO500T35 PO (11:03)
[2016-10-06] MEDS ORDERED: FLUT50SP EACH NARE (11:03)
[2016-10-06] MEDS ORDERED: [UNRECOGNIZED DRUG - OTHER] PO (11:05)
[2016-10-06] MEDS ORDERED: PERI8.6T PO (12:49)
== END 2016-09-17 21:04 | disposition home health service (06) | DRG 472 ==
LOC: HSDC 06:27 → EDSTATUS 08:30 → HPAC 09-08 00:22 → N03B 09-08 01:32 → OBSVTOIN 09-10 09:33 → N06B 09-14 22:48
PROVIDERS: ADMIT Neurological Surgery; ATTEND Neurological Surgery
PROC: 00NW0ZZ Release Cervical Spinal Cord, Open Approach (ICD-10-PCS; 2016-09-07)
PROC: 0RT30ZZ Resection of Cervical Vertebral Disc, Open Approach (ICD-10-PCS; 2016-09-07)
PROC: 00UT0KZ Supplement Spinal Meninges with Nonautologous Tissue Substitute, Open Approach (ICD-10-PCS; 2016-09-07)
PROC: 0RG10A0 Fusion of Cervical Vertebral Joint with Interbody Fusion Device, Anterior Approach, Anterior Column, Open Approach (ICD-10-PCS; principal; 2016-09-07 16:06)
PROC: 009U30Z Drainage of Spinal Canal with Drainage Device, Percutaneous Approach (ICD-10-PCS; 2016-09-09)
PROC: 0PH304Z Insertion of Internal Fixation Device into Cervical Vertebra, Open Approach (ICD-10-PCS; 2016-09-10)
PROC: 0RP104Z Removal of Internal Fixation Device from Cervical Vertebral Joint, Open Approach (ICD-10-PCS; 2016-09-10)
PROC: 01N10ZZ Release Cervical Nerve, Open Approach (ICD-10-PCS; 2016-09-10)
PROC: 00NW0ZZ Release Cervical Spinal Cord, Open Approach (ICD-10-PCS; 2016-09-10)
PROC: 00UT0KZ Supplement Spinal Meninges with Nonautologous Tissue Substitute, Open Approach (ICD-10-PCS; 2016-09-10)
PROC: 4A10X4G Monitoring of Central Nervous Electrical Activity, Intraoperative, External Approach (ICD-10-PCS; 2016-09-10)
DX: M50.023 Cervical disc disorder at C6-C7 level with myelopathy (principal); G96.0 Cerebrospinal fluid leak; Z68.41 Body mass index [BMI] 40.0-44.9, adult; G95.20 Unspecified cord compression; M48.02 Spinal stenosis, cervical region; M48.04 Spinal stenosis, thoracic region; I10 Essential (primary) hypertension; M25.78 Osteophyte, vertebrae; M48.8X2 Other specified spondylopathies, cervical region; M54.12 Radiculopathy, cervical region; G47.30 Sleep apnea, unspecified; J45.909 Unspecified asthma, uncomplicated; E11.9 Type 2 diabetes mellitus without complications; E66.9 Obesity, unspecified; I49.3 Ventricular premature depolarization; E83.39 Other disorders of phosphorus metabolism; Z79.84 Long term (current) use of oral hypoglycemic drugs
CPT/HCPCS: 62273; 63741; 72020; 72125; 72141; 72156; 76000; 77003; 80048; 80053; 82948; 83735; 84100; 84295; 85025; 85610; 85730; 87641; 94150; 99152; A9579; C1713; C1755; C1768; G8987-GO; G8988-GO; G8996-GN; G8997-GN; G8998-GN; J0131; J0690; J1100; J1170; J1580; J1815; J2250; J2270; J2405; J3010; J3480; J7050; J7120; J8501; J8540; L0150; L0172